=== PATIENT | female | born 2000 | race Caucasian/White ===

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

== ENCOUNTER 2020-09-01 19:14 | Emergency (ER) | payer OTHER ==
--- OUTSIDE RECORDS SUMMARY | 2020-09-01 19:18 | XMS REPORT | Continuity of Care Document ---
:2000 Author Organization [facility] t Address [address] [place] [address] Care Team Providers Name Role Phone Vanessa Burns Attending Clinician BRIAN Attending Clinician Unavailable PACINI Attending Clinician Unavailable STANCELL Attending Clinician Unavailable ATHLETIC Attending Clinician Unavailable GERALDO Attending Clinician Unavailable Problems Condition Condition Condition Status Onset Resolution Last Treating Co mments Source Name Details Category Date Date Treatment Clinician Date Right knee Right knee Problem Active [facility] [place] [facility] ACL injury ACL injury Problem Active [facility] [place] [facility] Allergies, Adverse Reactions, Alerts This patient has no known allergies or adverse reactions. Medications This patient has no known medications. Procedures Procedure Date / Time Performed Performing Clinician [facility] e [U] XRAY KNEE 3 VWS 2017-03-29 00:00:00 [facility] RIGHT [id number] Physicians Encounters Start End Encounter Admission Attending Care Care Encounter Source Date/Time Date/Time Type Type Clinicians Facility Department ID 2020-08-24 2020-08-24 Emergency CARLOS A [facility] [id number] 11:17:00 12:18:00 Chris Nuñez [id number] [place] [id number] [place] [id number] 2017-05-04 2017-05-04 [facility] [id number] [facility] 08:30:00 08:30:00 t; IFRAH TORRES, at [facility] Dejan Alfaro M.D. Physici ans 2017-03-29 2017-03-29 Appointmen JOSEF [facility] Orthopedics [id number] [facility] 09:30:00 09:30:00 t; JUWAN BAHENA, at [facility] it y of JUWAN, P.A. [place] [facility] Physici ans 2017-02-02 2017-02-02 Appointmen FRED, [facility] UTP [id number] Univers 11:30:00 11:30:00 t; DHRUV ELDRIDGE [place] Radha ELDRIDGE AUDIO VIDEO TECHNICIAN ans 2017-01-18 [facility] [id number] Univers 09:45:00 09:45:00 t; JUWAN BAHENA, it y of JUWAN, P.A. [place] P[facility]. 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 [place] M.D. Physici ans 2016-12-29 2016-12-29 [facility] BRIAN, [facility] UTP [id number] Univers 16:30:00 16:30:00 t; IFRAH TORRES ity o f WALTER, M.D. [place] M.D. Physici ans 2016-12-10 2016-12-10 [facility] GERALDO, [facility] [id number] Univers 09:30:00 09:30:00 t; MANISHA CHOW P.A. ity of [place], [place] P.A. Physici ans Results This patient has no known results.
[2020-09-01] MEDS ORDERED: FAMOTIDINE 20 MG/2 ML VIAL IV ONE (20:48)
[2020-09-01] MEDS ORDERED: NA CHLORIDE 0.9% 1,000 ML ONE (20:48)
[2020-09-01] MEDS ORDERED: ONDANSETRON 4 MG/2 ML VIAL ONE (20:48)
[2020-09-01 20:57] LABS: Basophils % 0.1 % (0-1.3); Hematocrit 36.2 % (36.0-45.0); Lymphocytes % 7.8 % (15.3-44.8); MPV 9.4 fL (7.6-11.3); RBC Red Blood Cell Count 4.21 M/uL (3.86-4.86)
[2020-09-01 21:25] LABS: ALT/SGPT 32 U/L (12-78); AST/SGOT 15 U/L (15-37); Albumin 3.6 g/dL (3.4-5.0); Alkaline Phosphatase 76 U/L (45-117); BUN Blood Urea Nitrogen 8 mg/dL (7-18); Bicarbonate 24 mmol/L (21-32); Bilirubin Direct 0.1 mg/dL (0-0.2); Bilirubin Total 0.5 mg/dL (0.2-1.0); Glucose Level 88 mg/dL (74-106); Lipase 92 U/L (73-393); Potassium 3.4 mmol/L (3.5-5.1); Protein, Total 7.6 g/dL (6.4-8.2); Sodium Level 140 mmol/L (136-145)
[2020-09-01 21:32] LABS: HCG, Quantitative 119438 mIU/mL (1-3)
[2020-09-01 21:56] LABS: Blood Morphology Comment NOT SEEN (NOT SEEN); Platelet Estimate ADEQ; White Blood Cell Scan OK (OK)
[2020-09-01 22:42] LABS: Urine Blood Negative (Negative); Urine Glucose Negative (Negative); Urine Protein 1+ (Negative); Urine Specific Gravity >=1.030 (1.005-1.030)
--- NOTE | 2020-09-01 22:56 | ER ---
Nurse's Notes [facility] Name: Clarissa Rodriguez Age: 20 yrs Sex: Female : 2000 Arrival Date: 09/01/2020 Time: 19:26 Bed 17 Private MD: Diagnosis: Hyperemesis Gravidarum Presentation: 09/01 19:33 Chief complaint: Patient states: 8 weeks , been vomiting all day, can't keep ca1 anything down. Took Promethazine, just threw it up as well. Coronavirus screen: Client denies travel out of the [place] in the last 14 days. nausea, vomiting. Client presents with at least one sign or symptom that may indicate coronavirus-19. Standard/surgical mask placed on the client. Provider contacted for isolation considerations. Ebola Screen: Patient negative for fever greater than or equal to 101.5 degrees Fahrenheit, and additional compatible Ebola Virus Disease symptoms Patient denies exposure to infectious person. Patient denies travel to an Ebola-affected area in the 21 days before illness onset. No symptoms or risks identified at this time. Initial Sepsis Screen: Does the patient meet any 2 criteria? No. Patient's initial sepsis screen is negative. Does the patient have a suspected source of infection? No. Patient's initial sepsis screen is negative. Risk Assessment: Do you want to hurt yourself or someone else? Patient reports no desire to harm self or others. Onset of symptoms was September 01, 2020. 19:33 Method Of Arrival: Ambulatory ca1 19:33 Acuity: RICKY 3 ca1 Triage Assessment: 22:04 General: Appears in no apparent distress. Behavior is calm, cooperative. GI: Reports. 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 - Social history:: Smoking status: Patient denies any tobacco usage or history of. Screenin:04 Abuse screen: Denies threats or abuse. Denies injuries from another. Nutritional ak2 screening: No deficits noted. Tuberculosis screening: No symptoms or risk factors identified. Fall Risk None identified. Assessment: 22:04 Reassessment: Patient and/or family updated on plan of care and expected duration. Pain ak2 level reassessed. Pain: Denies pain. GI: Abdomen is non-distended. Vital Signs: 19:33 BP 136 / 75; Pulse 90; Resp 18 S; Temp 97.6(TE); Pulse Ox 100% on R/A; Weight 98.43 kg ca1 (R); Height 5 ft. 2 in. (157.48 cm) (R); Pain 5/10; 22:05 BP 124 / 68; Pulse 75; Resp 18; Pulse Ox 98% on R/A; ak2 23:13 BP 116 / 79; Pulse 68; Resp 18; Pulse Ox 98% on R/A; ak2 19:33 Body Mass Index 39.69 (98.43 kg, 157.48 cm) ca1 ED Course: 19:26 Patient arrived in ED. am4 19:34 Triage completed. ca1 19:34 Arm band placed on right wrist. ca1 19:37 Chip Sanchez MD is Attending Physician. [facility] 19:44 Johnie Escoto is Primary Nurse. ak2 22:04 Patient has correct armband on for positive identification. ak2 22:04 No provider procedures requiring assistance completed. Inserted saline lock: 20 gauge ak2 in right antecubital area, using aseptic technique. 23:14 IV discontinued. ak2 Administered Medications: 20:29 Drug: NS 0.9% 1000 ml Route: IV; Rate: 1000 ml; Site: right antecubital; ak2 20:29 Drug: Zofran (Ondansetron) 4 mg Route: IVP; Site: right antecubital; ak2 20:29 Drug: Pepcid (famotidine) 20 mg Route: IVP; Site: right antecubital; ak2 Outcome: 22:56 Discharge ordered by . claudio 23:13 Discharged to home ambulatory. ak2 23:13 Condition: good 23:13 Discharge instructions given to patient, Prescriptions given X 23:20 Patient left the ED. ak2 Signatures: Latonya Finn RN RN ca1 Chip Sanchez MD MD mh7 Martinez, Ashley 4 Johnie Escoto ak2
--- NOTE | 2020-09-01 22:57 | EDPHYS ---
Physician Documentation [facility] Name: Clarissa Rodriguez Age: 20 yrs Sex: Female : 2000 Arrival Date: 09/01/2020 Time: 19:26 Bed 17 Private MD: ED Physician Chip Sanchez HPI: 09/01 20:17 This 20 yrs old Female presents to ER via Ambulatory with complaints of mh7 Nausea/Vomiting. 20:17 The patient presents to the emergency department with nausea, that is moderate, mh7 vomiting, that is intermittent, described as clear fluid. Onset: The symptoms/episode began/occurred 2 week(s) ago, and became worse this morning. Possible causes: . The symptoms are aggravated by food , The symptoms are alleviated by nothing. Associated signs and symptoms: Pertinent positives: nausea, vomiting, Pertinent negatives: abdominal pain, anorexia, belching, constipation, diarrhea, dysuria, fever, flatulence, GI bleeding, hematuria, vaginal discharge. Severity of symptoms: At their worst the symptoms were moderate today, in the emergency department the symptoms are unchanged. DEVELOPMENT ENG: 19:34 2, Full Term 1, Living 1, LMP 07/06/2020 ca1 Historical: - Allergies: 19:34 No Known Allergies; ca1 - Home Meds: 19:34 Nausea medication [Active]; ca1 22:05 Vitamin Oral [Active]; ak2 - PMHx: 19:34 None; ca1 - Immunization history:: Client reports having NOT received the Covid vaccine. - Social history:: Smoking status: Patient denies any tobacco usage or history of. ROS: 20:17 Constitutional: Negative for fever, chills, and weight loss, Eyes: Negative for injury, mh7 pain, redness, and discharge, ENT: Negative for injury, pain, and discharge, Neck: Negative for injury, pain, and swelling, Cardiovascular: Negative for chest pain, palpitations, and edema, Respiratory: Negative for shortness of breath, cough, wheezing, and pleuritic chest pain, Back: Negative for injury and pain, : Negative for injury, bleeding, discharge, and swelling, MS/Extremity: Negative for injury and deformity, Skin: Negative for injury, rash, and discoloration, Neuro: Negative for headache, weakness, numbness, tingling, and seizure, Psych: Negative for depression, anxiety, suicide ideation, homicidal ideation, and hallucinations, Allergy/Immunology: Negative for hives, rash, and allergies, Endocrine: Negative for neck swelling, polydipsia, polyuria, polyphagia, and marked weight changes, Hematologic/Lymphatic: Negative for swollen nodes, abnormal bleeding, and unusual bruising. Exam: 20:17 Constitutional: This is a well developed, well nourished patient who is awake, alert, mh7 and in no acute distress. Head/Face: Normocephalic, atraumatic. Eyes: Pupils equal round and reactive to light, extra-ocular motions intact. Lids and lashes normal. Conjunctiva and sclera are non-icteric and not injected. Cornea within normal limits. Periorbital areas with no swelling, redness, or edema. Neck: Trachea midline, no thyromegaly or masses palpated, and no cervical lymphadenopathy. Supple, full range of motion without nuchal rigidity, or vertebral point tenderness. No Meningismus. Chest/axilla: Normal chest wall appearance and motion. Nontender with no deformity. No lesions are appreciated. Cardiovascular: Regular rate and rhythm with a normal S1 and S2. No gallops, murmurs, or rubs. Normal PMI, no JVD. No pulse deficits. Respiratory: Lungs have equal breath sounds bilaterally, clear to auscultation and percussion. No rales, rhonchi or wheezes noted. No increased work of breathing, no retractions or nasal flaring. Abdomen/GI: Soft, non-tender, with normal bowel sounds. No distension or tympany. No guarding or rebound. No evidence of tenderness throughout. Back: No spinal tenderness. No costovertebral tenderness. Full range of motion. Skin: Warm, dry with normal turgor. Normal color with no rashes, no lesions, and no evidence of cellulitis. MS/ Extremity: Pulses equal, no cyanosis. Neurovascular intact. Full, normal range of motion. Neuro: Awake and alert, GCS 15, oriented to person, place, time, and situation. Cranial nerves II-XII grossly intact. Motor strength 5/5 in all extremities. Sensory grossly intact. Cerebellar exam normal. Normal gait. Psych: Awake, alert, with orientation to person, place and time. Behavior, mood, and affect are within normal limits. Vital Signs: 19:33 BP 136 / 75; Pulse 90; Resp 18 S; Temp 97.6(TE); Pulse Ox 100% on R/A; Weight 98.43 kg ca1 (R); Height 5 ft. 2 in. (157.48 cm) (R); Pain 5/10; 22:05 BP 124 / 68; Pulse 75; Resp 18; Pulse Ox 98% on R/A; ak2 23:13 BP 116 / 79; Pulse 68; Resp 18; Pulse Ox 98% on R/A; ak2 19:33 Body Mass Index 39.69 (98.43 kg, 157.48 cm) ca1 MDM: 22:54 Differential diagnosis: gastritis, pancreatitis, Hyperemesis Gravidarum. Data reviewed: [facility] vital signs, nurses notes, lab test result(s), Beta HCG: CBC, electrolytes, urinalysis. Data interpreted: Pulse oximetry: on room air is 98 %. Interpretation: normal. Counseling: I had a detailed discussion with the patient and/or guardian regarding: the historical points, exam findings, and any diagnostic results supporting the discharge/admit diagnosis, lab results, the need for outpatient follow up, an OB/Gyne specialist, to return to the emergency department if symptoms worsen or persist or if there are any questions or concerns that arise at home. Response to treatment: the patient's symptoms have resolved after treatment, the patient's blood pressure is in an acceptable range, mental status has returned to baseline, the patient no longer shows bradycardia, the patient is not short of breath, the patient is not tachycardic, the patient's pain is gone, the patient's temperature has normalized. 22:[address] [facility] 22:57 ED course: Patient reports having a normal ultrasound last week.. [facility] 09/01 20:06 Order name: CBC with Diff; Complete Time: 21:58 [facility] 09/01 20:06 Order name: Basic Metabolic Panel; Complete Time: 21:34 [facility] 09/01 20:06 Order name: LFT's; Complete Time: 21:34 [facility] 09/01 20:06 Order name: Lipase; Complete Time: 21:34 [facility] 09/01 20:06 Order name: HCG-Quantitative; Complete Time: 21:34 [facility] 09/01 21:56 Order name: CBC Smear Scan; Complete Time: 21:58 [facility] 09/01 20:06 Order name: Urine Dipstick-Ancillary (obtain specimen) [facility] 09/01 22:41 Order name: Urine Dipstick-Ancillary; Complete Time: 22:52 EDMS Administered Medications: 20:29 Drug: NS 0.9% 1000 ml Route: IV; Rate: 1000 ml; Site: right antecubital; ak2 20:29 Drug: Zofran (Ondansetron) 4 mg Route: IVP; Site: right antecubital; ak2 20:29 Drug: Pepcid (famotidine) 20 mg Route: IVP; Site: right antecubital; ak2 Disposition Summary: 09/01/20 22:56 Discharge Ordered Location: Home [facility] Problem: an ongoing problem [facility] Symptoms: have improved [facility] Condition: Stable [facility] Diagnosis - Hyperemesis Gravidarum [facility] Followup: [facility] - With: Private Physician - When: 1 - 2 days - Reason: Worsening of condition, Recheck today's complaints, Continuance of care, Re-evaluation by your physician Discharge Instructions: - Discharge Summary Sheet [facility] - Hyperemesis Gravidarum [facility] Forms: - Medication Reconciliation Form [facility] - Thank You Letter [facility] - Antibiotic Education [facility] - Prescription Opioid Use [facility] Prescriptions: - ondansetron 4 mg Oral tablet,disintegrating - place 1 tablet by TRANSLINGUAL route every 8 hours As needed; 10 tablet; [facility] Refills: 0, Product Selection Permitted Signatures: Dispatcher [employer] [facility] Latonya Finn RN RN ca1 Chip Sanchez MD MD [facility] Johnie Escoto [facility]
[2020-09-01 23:32] VITALS: TEMP 97.6
[2020-09-01 23:34] VITALS: O2SAT 98
[2020-09-01 23:35] VITALS: BP 116/79
== END 2020-09-01 23:20 | disposition home or self-care (01) ==
LOC: ER 19:14
DX: O21.0 Mild hyperemesis gravidarum (principal); Z3A.00 Weeks of gestation of pregnancy not specified
CPT/HCPCS: 85025; 80048; 36415; 80076; 84702; 81003; 83690; 96375; 96374; 99283; J7030; J2405

== ENCOUNTER 2022-07-17 17:48 | Emergency (ER) | payer BC, OTHER ==
--- OUTSIDE RECORDS SUMMARY | 2022-07-17 17:54 | XMS REPORT | Continuity of Care Document ---
:2000 Author Organization [facility] t Address [address] [facility] [place] [address] [place] [address] Care Team Providers Name Role Phone Artemio Lawler Primary Care Physician Jackson Sandy MD Attending Clinician JACKSON SANDY Attending Clinician Unavailable Nurse, [facility] Attending Clinician Unavailable Doctor Unassigned, [place] Attending Clinician Unavailable Only, Adc Test Attending Clinician Unavailable Lawrence Soto MD Attending Clinician Pob, [facility] Lab Main Attending Clinician Unavailable Ultrasound, Ang-Mfm Attending Clinician Unavailable Eliazar Cuba MD Attending Clinician ELIAZAR CUBA Attending Clinician Unavailable ELIAZAR CUBA Attending Clinician Unavailable DEVON BOO Attending Clinician Unavailable Devon Boo MD Attending Clinician Balta Diaz Attending Clinician Unavailable Chris Burns Attending Clinician CHRIS GARCIA Attending Clinician Unavailable LOWE, IFRAH, M.D. Attending Clinician Unavailable JUWAN BAHENA P.A. Attending Clinician Unavailable JAZMYN IBARRA NP Attending Clinician Unavailable ATHLETIC, CHANNEL OPENER Attending Clinician Unavailable MANISHA CHOW P.A. Attending Clinician Unavailable JACKSON SANDY Admitting Clinician Unavailable Jackson Sandy MD Admitting Clinician Physician, No Primary or Family Admitting Clinician Unavaila ble Payers Payer Name Policy Type Policy Number Effective Date Expiration Date S ro [employer] OF [place] [id number] 2018 00:00:00 [facility] [id number] 2020 CHOICE MEDICAID 00:00:00 MEDICAID [facility] [id number] 2020 00:00:00 [facility] [id number] 2014 PPO/POS 00:00:00 Problems Condition Condition Condition Status Onset Resolution Last Treating Co mments Source Name Details Category Date Date Treatment Clinician Date Liveborn Liveborn Disease Active Unive rs , of infant, of 2-15 it y of [place] , [place] d[place] born in born in [facility] by by delivery delivery Labor and Labor and Disease Active Uni vers delivery, delivery, 2-14 [place] for [place] for care 00 Medica l [place] Obesity Obesity Disease Active Univers (BMI (BMI 1-07 ity of 30-39.9) 30-39.9) 00:00: [address] Obesity in Obesity in Disease Active U nivers 9-08 ity of 00:00: [address] History of History of Disease Active U nivers COVID-19 COVID-19 8-10 ity of 00:00: [place] 00 [facility] Branch Supervisio Supervisio Disease Active U nivers n of high n of high 7-13 ity of risk risk 00:00: [place] 00 Medi keyanna in third in third Branch trimester trimester Nausea/vom Nausea/vom Disease Active U nivers iting in iting in 7-01 [place] 00 [place] Gastroesop Gastroesop Disease Active U nivers hageal hageal 7- ity of reflux reflux 00:00: [place] disease disease 00 Medical without without Branch esophagiti esophagiti s s Generalize Generalize Disease Active U hugo d anxiety d anxiety 08-22 ity of disorder disorder 00:00: [place] 00 Medical Branch Depression Depression Disease Active U nivers affecting affecting 08-22 it[place] of 00:[place] in third in third 00 Medica l trimester, trimester, Br anch antepartum antepartum Mild Mild Disease Active Univers intermitte intermitte 08-22 it y of nt asthma nt asthma 00:00: [place] without without 00 Medical complicati complicati Br anch on on H/O H/O Disease Active Univers 08-22 ity of section section 00:00: [place] 00 [facility] Branch Right knee Right knee Problem Active U T pain pain Physici ans ACL injury ACL injury Problem Active U T tear tear Physici ans No known No known Disease Unive rs active active ity of problems problems [facility] Allergies, Adverse Reactions, Alerts Allergy Allergy Status Severity Reaction(s) Onset Inactive Treating Comm ents Source Name Type Date Date Clinician No Known DA Active U [facility] Allergie 10-31 [facility] [place] No Known DA Active U [facility] Allergie 10-31 [facility] [place] NO KNOWN Drug Active Univers ALLERGIE Class ity of S [facility] Social History Social Habit Start Date Stop Date Quantity Comments Source ASSERTION 2020-07-21 University of 00:00:00 [facility] Exposure to Not sure University SARS-CoV-2 [facility] [place] [facility] (event) [place] Alcohol intake 2021-05-22 2021-05-22 Lifetime University of 00:00:00 00:00:00 non-drinker [facility] [place] [facility] (finding) [place] Tobacco use and 2020-08-20 2020-08-20 Smokeless tobacco Un iversity of exposure 00:00:00 00:00:00 non-user [facility] Sex Assigned At [birth year] Universit y of 00:00:00 00:00:00 [facility] Smoking Status Start Date Stop Date Source Unknown if ever smoked Universit y of [facility] Never smoked tobacco [facility] Medications Ordered Filled Start Stop Current Ordering Indication Dosage Frequency Signature Comments Components Source Medication Medication Date Date Medication? Clinician (SIG) Name Name SERTraline Yes [id number] 25mg Take 1 U nivers 25 mg 3-31 tablet by ity of tablet 00:00: mouth [place] 00 daily. Medical Branch SERTraline Yes [id number] 25mg Take 1 U nivers 25 mg 3-31 tablet by ity of tablet 00:00: mouth [place] 00 daily. Medical Branch ibuprofen 800mg 800 mg, Uni vers (IBU) 16 04-09 Oral, ity of tablet 800 03:00: 01:58 ONCE, 1 Manpreet as mg 00 :00 dose, On Medical e Branch 04/08/21 at 2100, Routine Yes Take by Bufferer s vit 2-15 mouth. ity of calc,iron,f 20:35: [address] ( Branch VITAMIN ORAL) Yes Take by Bufferer s vit 2-15 mouth. ity of calc,iron,f 20:35: [address] ( Branch VITAMIN ORAL) Yes Take by Bufferer s vit 2-15 mouth. ity of calc,iron,f 20:35: [address] ( Branch VITAMIN ORAL) Yes Take by Bufferer s vit 2-15 mouth. ity of calc,iron,f 20:35: [address] ( Branch VITAMIN ORAL) Yes Take by Bufferer s vit 2-15 mouth. ity of calc,iron,f 20:35: [address] ( Branch VITAMIN ORAL) Yes Take by Bufferer s vit 2-15 mouth. ity of calc,iron,f 20:35: [address] ( Branch VITAMIN ORAL) Yes Take by Bufferer s vit 2-15 mouth. ity of calc,iron,f 20:35: [address] ( Branch VITAMIN ORAL) Yes Take by Univer s vit 2-15 mouth. ity of calc,iron,f 09:31: [address] ( Branch VITAMIN ORAL) docusate 2022-0 Yes [id number] 240mg Take 1 U nivers calcium 240 2-15 capsule by it y of mg capsule 00:00: mouth [place] 00 daily as Medical needed for Branch Constipati on. ferrous 0 Yes [id number] 325mg Take 1 Un cinda sulfate 325 2-15 tablet by ity of mg (65 mg 00:00: mouth [place] iron) 00 daily. Medical tablet Branch ibuprofen Yes [id number] 600mg Take 1 Univers 600 mg 2-15 tablet by ity of tablet 00:00: mouth [place] 00 every 6 Medical (six) Branch hours as needed (Pain). Take with food or milk. acetaminoph Yes 650mg 650 mg, Un cinda en 2-15 Oral, Q6H, ity of (TYLENOL) 00:00: First dose [place] tablet 650 00 on Mon Medical mg 04/07/21 at Branch 1800, Until Discontinu ed, Routine docusate Yes [id number] 240mg Take 1 U nivers calcium 240 2-15 capsule by it y of mg capsule 00:00: mouth once [place] 00 daily as Medical needed for Branch Constipati on. ferrous Yes [id number] 325mg Take 1 Un cinda sulfate 325 2-15 tablet by ity of mg (65 mg 00:00: mouth [place] iron) 00 daily. Medical tablet Branch ibuprofen Yes [id number] 600mg Take 1 Univers 600 mg 2-15 tablet by ity of tablet 00:00: mouth [place] 00 every 6 Medical (six) Branch hours as needed (Pain). Take with food or milk. acetaminoph Yes 650mg 650 mg, Un cinda en 2-15 Oral, Q6H, ity of (TYLENOL) 00:00: First dose [place] tablet 650 00 on Mon Medical mg 04/07/21 at Branch 1800, Until Discontinu ed, Routine docusate 0 Yes [id number] 240mg Take 1 U nivers calcium 240 2-15 capsule by it y of mg capsule 00:00: mouth once [place] 00 daily as Medical needed for Branch Constipati on. ferrous 0 Yes [id number] 325mg Take 1 Un cinda sulfate 325 2-15 tablet by ity of mg (65 mg 00:00: mouth [place] iron) 00 daily. Medical tablet Branch ibuprofen Yes [id number] 600mg Take 1 Univers 600 mg 2-15 tablet by ity of tablet 00:00: mouth [place] 00 every 6 Medical (six) Branch hours as needed (Pain). Take with food or milk. docusate 0 Yes [id number] 240mg Take 1 U nivers calcium 240 2-15 capsule by it y of mg capsule 00:00: mouth once [place] 00 daily as Medical needed for Branch Constipati on. ferrous Yes [id number] 325mg Take 1 Un cinda sulfate 325 2-15 tablet by ity of mg (65 mg 00:00: mouth [place] iron) 00 daily. Medical tablet Branch ibuprofen Yes [id number] 600mg Take 1 Univers 600 mg 2-15 tablet by ity of tablet 00:00: mouth [place] 00 every 6 Medical (six) Branch hours as needed (Pain). Take with food or milk. docusate Yes [id number] 240mg Take 1 U nivers calcium 240 2-15 capsule by it y of mg capsule 00:00: mouth once [place] 00 daily as Medical needed for Branch Constipati on. ferrous Yes [id number] 325mg Take 1 Un cinda sulfate 325 2-15 tablet by ity of mg (65 mg 00:00: mouth [place] iron) 00 daily. Medical tablet Branch ibuprofen 0 Yes [id number] 600mg Take 1 Univers 600 mg 2-15 tablet by ity of tablet 00:00: mouth [place] 00 every 6 Medical (six) Branch hours as needed (Pain). Take with food or milk. docusate 0 Yes [id number] 240mg Take 1 U nivers calcium 240 2-15 capsule by it y of mg capsule 00:00: mouth once [place] 00 daily as Medical needed for Branch Constipati on. ferrous 0 Yes [id number] 325mg Take 1 Un cinda sulfate 325 2-15 tablet by ity of mg (65 mg 00:00: mouth [place] iron) 00 daily. Medical tablet Branch ibuprofen Yes [id number] 600mg Take 1 Univers 600 mg 2-15 tablet by ity of tablet 00:00: mouth [place] 00 every 6 Medical (six) Branch hours as needed (Pain). Take with food or milk. docusate Yes [id number] 240mg Take 1 U nivers calcium 240 2-15 capsule by it y of mg capsule 00:00: mouth once [place] 00 daily as Medical needed for Branch Constipati on. ferrous Yes [id number] 325mg Take 1 Un cinda sulfate 325 2-15 tablet by ity of mg (65 mg 00:00: mouth [place] iron) 00 daily. Medical tablet Branch ibuprofen Yes [id number] 600mg Take 1 Univers 600 mg 2-15 tablet by ity of tablet 00:00: mouth [place] 00 every 6 Medical (six) Branch hours as needed (Pain). Take with food or milk. docusate Yes [id number] 240mg Take 1 U nivers calcium 240 2-15 capsule by it y of mg capsule 00:00: mouth once [place] 00 daily as Medical needed for Branch Constipati on. ferrous Yes [id number] 325mg Take 1 Un cinda sulfate 325 2-15 tablet by ity of mg (65 mg 00:00: mouth [place] iron) 00 daily. Medical tablet Branch ibuprofen Yes [id number] 600mg Take 1 Univers 600 mg 2-15 tablet by ity of tablet 00:00: mouth [place] 00 every 6 Medical (six) Branch hours as needed (Pain). Take with food or milk. oxyCODONE-a 2021- No [id number] 1{tbl} Take 1 U nivers cetaminophe 2-15 -23 tablet by it y of n 5-325 mg 00:00: 05:59 mouth [place] per tablet 00 :00 every 6 Medica l (six) Branch hours as needed for Pain (scale 7-10) for up to 7 days. Indication s: acute pain oxyCODONE-a 2021- No 4647 1{tbl} Take 1 U nivers cetaminophe 2-15 02-23 tablet by it y of n 5-325 mg 00:00: 05:59 mouth [place] per tablet 00 :00 every 6 Medica l (six) Branch hours as needed for Pain (scale 7-10) for up to 7 days. Indication s: acute pain oxyCODONE-a 2021- No 4647 1{tbl} Take 1 U nivers cetaminophe 04-08 tablet by it y of n 5-325 mg 00:00: 05:59 mouth [place] per tablet 00 :00 every 6 Medica l (six) Branch hours as needed for Pain (scale 7-10) for up to 7 days. Indication s: acute pain ketorolac No 30mg 30 mg, Unive rs (TORADOL) 04-07- Slow IV ity of injection 20:00: 15:09 [place], Q6H [place] 30 mg 00 :00 ABX, 4 Medical doses, Branch First dose on Wed04/07/21 at 1400, Last dose on Wed04/08/21 at 0800, Routine simethicone Yes 125mg 125 mg, Un cinda (MYLICON) 2-14 Oral, ity of chewable 19:00: PC+HS, [place] tablet 125 00 First dose Med ical mg on Wed04/07/21 at 1300, Until Discontinu ed, Routine simethicone Yes 125mg 125 mg, Un cinda (MYLICON) 2-14 Oral, ity of chewable 19:00: PC+HS, [place] tablet 125 00 First dose Med ical mg on Wed04/07/21 at 1300, Until Discontinu ed, Routine lactated 2021- No 1000mL at 125 Univ ers ringers IV 04-07 02-15 mL/hr, ity of infusion 18:15: 01:49 1,000 mL, Manpreet as 1,000 mL 00 :00 IV Medical Infusion, Branch ONCE, 1 dose, On Wed04/07/21 at 1215, Routine rho(D) Yes 300ug 300 mcg, Univer s immune - Intramuscu ity of globulin 17:15: lar, ONCE, Manpreet as (RHOGAM) 17 For 1 Medical syringe 300 dose, Branch mcg Conditiona l, Routine rho(D) Yes 300ug 300 mcg, Univer s immune -14 Intramuscu ity of globulin 17:15: lar, ONCE, Manpreet as (RHOGAM) 17 For 1 Medical syringe 300 dose, Branch mcg Conditiona l, Routine oxyCODONE 2021-0 Yes 10mg 10 mg, Univer s immediate 2-14 Oral, ity of release 17:14: Q6HPRN, [place] tablet 10 50 Starting Medica l mg on Wed Branch 04/07/21 at 1114, Until Discontinu ed, Routine, Pain (scale 7-10)<b r>pricing/signage team member approving Restricted medication : JACKSON SANDY oxyCODONE 2021-0 Yes 10mg 10 mg, Univer s immediate 2-14 Oral, ity of release 17:14: Q6HPRN, [place] tablet 10 50 Starting Medica l mg on Wed Branch 04/07/21 at 1114, Until Discontinu ed, Routine, Pain (scale 7-10)<b r>pricing/signage team member approving Restricted medication : JACKSON SANDY oxyCODONE 2021-0 Yes 5mg 5 mg, Univers immediate 2-14 Oral, ity of release 17:14: Q6HPRN, [place] tablet 5 mg 32 Starting Medi keyanna on Wed Branch 04/07/21 at 1114, Until Discontinu ed, Routine, Pain (scale 4-6)
pricing/signage team member approving Restricted medication : JACKSON SANDY oxyCODONE 2021-0 Yes 5mg 5 mg, Univers immediate 2-14 Oral, ity of release 17:14: Q6HPRN, [place] tablet 5 mg 32 Starting Medi keyanna on Wed Branch 04/07/21 at 1114, Until Discontinu ed, Routine, Pain (scale 4-6)
pricing/signage team member approving Restricted medication : JACKSON SANDY diphenhydrA 2021-0 Yes 25mg 25 mg, Univ ers MINE 2-14 Slow IV ity of (BENADRYL) 17:11: Push, [place] injection 32 Q6HPRN, Medical 25 mg Starting Branch on Wed04/07/21 at 1111, Until Discontinu ed, Routine, Itching diphenhydrA 2021-0 Yes 25mg 25 mg, Univ ers MINE 2-14 Oral, ity of (BENADRYL) 17:11: Q6HPRN, [place] tablet 25 32 Starting Medica l mg on Wed Branch 04/07/21 at 1111, Until Discontinu ed, Routine, Sleep, Itching ondansetron 2022-0 Yes 4mg 4 mg, Slow Univers (ZOFRAN 2-14 IV Push, ity of (PF)) 17:11: Q8HPRN, [place] injection 4 32 Starting Medi keyanna mg on Wed Branch 04/07/21 at 1111, Until Discontinu ed, Routine, Nausea and Vomiting (N/V) bisacodyL 2-0 Yes 10mg 10 mg, Univer s (DULCOLAX) 2-14 Rectal, ity of suppository 17:11: QDAILYPRN, [place] 10 mg 32 Starting Medical on Mon Branch 04/07/21 at 1111, Until Discontinu ed, Routine, Constipati on docusate 2-0 Yes 240mg 240 mg, Unive rs calcium 2-14 Oral, ity of (SURFAK) 17:11: QDAILYPRN, Manpreet as capsule 240 32 Starting Medi keyanna mg on Wed Branch 04/07/21 at 1111, Until Discontinu ed, Routine, Constipati on magnesium 2021-0 Yes 30mL 30 mL, Univer s hydroxide 2-14 Oral, ity of (MILK OF 17:11: QDAILYPRN, Manpreet as MAGNESIA) 32 Starting Medica l 400 mg/5 mL on Wed suspension 04/07/21 at 30 mL 1111, Until Discontinu ed, Routine, Constipati on diphenhydrA 2-0 Yes 25mg 25 mg, Univ ers MINE 2-14 Slow IV ity of (BENADRYL) 17:11: Push, [place] injection 32 Q6HPRN, Medical 25 mg Starting Branch on Wed04/07/21 at 1111, Until Discontinu ed, Routine, Itching diphenhydrA 2022-0 Yes 25mg 25 mg, Univ ers MINE 2-14 Oral, ity of (BENADRYL) 17:11: Q6HPRN, [place] tablet 25 32 Starting Medica l mg on Wed Branch 04/07/21 at 1111, Until Discontinu ed, Routine, Sleep, Itching ondansetron 2022-0 Yes 4mg 4 mg, Slow Univers (ZOFRAN 2-14 IV Push, ity of (PF)) 17:11: Q8HPRN, [place] injection 4 32 Starting Medi keyanna mg on Wed Branch 04/07/21 at 1111, Until Discontinu ed, Routine, Nausea and Vomiting (N/V) bisacodyL 0 Yes 10mg 10 mg, Univer s (DULCOLAX) 2-14 Rectal, ity of suppository 17:11: QDAILYPRN, [place] 10 mg 32 Starting Medical on Wed Branch 04/07/21 at 1111, Until Discontinu ed, Routine, Constipati on docusate 0 Yes 240mg 240 mg, Unive rs calcium 2-14 Oral, ity of (SURFAK) 17:11: QDAILYPRN, Manpreet as capsule 240 32 Starting Medi keyanna mg on Wed Branch 04/07/21 at 1111, Until Discontinu ed, Routine, Constipati on magnesium Yes 30mL 30 mL, Univer s hydroxide 2-14 Oral, ity of (MILK OF 17:11: QDAILYPRN, Manpreet as MAGNESIA) 32 Starting Medica l 400 mg/5 mL on Wed [place] suspension 04/07/21 at 30 mL 1111, Until Discontinu ed, Routine, Constipati on sodium 0 Yes PRN, Univers chloride 2-14 Starting ity of 0.9 % 15:30: on Wed [place] irrigation 00 04/07/21 at Med ical solution 0930, [place] Until Discontinu ed, Intra-op sodium 0 Yes PRN, Univers chloride 2-14 Starting ity of 0.9 % 15:30: on [facility] irrigation 00 04/07/21 at Med ical solution 0930, [place] Until Discontinu ed, Intra-op ceFAZolin 2021- No 2000mg 2 g (2,000 Univers in 0.9% 04-07 02-14 mg), IV ity of sodium 13:40: 14:19 [place]gyback, [place] chloride 18 :00 [facility] Medical (ANC) 2 [facility] Branch gram/100 mL ONCE, 1 RTU 2 g dose, Starting on Wed04/07/21 at 0740, Until Discontinu ed, Administer over 30 Minutes
Reason for Anti-Infec tive: Surgical Prophylaxi s
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
Duration of therapy: within 24 hours of surgery lactated 2021- No 1000mL at 125 Univ ers ringers IV 2-14 02-14 mL/hr, ity of infusion 11:45: 17:15 1,000 mL, Manpreet as 1,000 mL 00 :18 IV Medical Infusion, Branch CONTINUOUS , Starting on 04/07/21 at 0545, Until Wed04/07/21 at 1115, Routine sodium 2021- No 30mL 30 mL, Univers citrate-cit 04-0714 Oral, ity of grecia acid 11:29: 13:45 PRE-PROCED [place] (BICITRA) 47 :00 URE ONCE, Medic al [id number] 1 dose, Branch mg/5 mL Starting solution 30 on Mon mL 04/07/21 at 0529, Until Discontinu ed, Routine, Surgery/Pr ocedure clobetasoL Yes [id number] Apply to Univers 0.05 % 1-27 area(s) 2 ity of ointment 00:00: (two) [place] 00 times Medical daily. Branch clobetasoL Yes [id number] Apply to Univers 0.05 % 1-27 area(s) 2 ity of ointment 00:00: (two) [place] 00 times Medical daily. Branch clobetasoL 2021- No [id number] Apply to Univers 0.05 % 1-27 02-03 area(s) 2 ity of ointment 00:00: 00:00 (two) [place] 00 :00 times Medical daily. Branch Yes Take by [employer] [facility] vit 1-21 mouth. ity of calc,iron,f 09:45: [place] [address] Medical ( Branch VITAMIN ORAL) Yes Take by [employer] s vit 1-21 mouth. ity of calc,iron,f 09:45: [place] [address] Medical ( Branch VITAMIN ORAL) Yes Take by [employer] s vit 1-21 mouth. ity of calc,iron,f 09:45: [place] [address] Medical ( Branch VITAMIN ORAL) Yes Take by [employer] s vit 1-21 mouth. ity of calc,iron,f 09:45: [place] [address] Medical ( Branch VITAMIN ORAL) Yes Take by Bufferer s vit 1-21 mouth. ity of calc,iron,f 09:45: [place] [facility] 27 Medical ( Branch VITAMIN ORAL) Yes Take by Unive rs vit 1-21 mouth. ity of calc,iron,f 09:45: [facility] 27 Medical ( Branch VITAMIN ORAL) Yes Take by Univer s vit 1-21 mouth. ity of calc,iron,f 09:45: [facility] 27 Medical ( Branch VITAMIN ORAL) Yes Take by Univer s vit 1-21 mouth. ity of calc,iron,f 09:45: [facility] 27 Medical ( Branch VITAMIN ORAL) Yes Take by Univer s vit 1-21 mouth. ity of calc,iron,f 09:45: [facility] 27 Medical ( Branch VITAMIN ORAL) Yes Take by Univer s vit 1-21 mouth. ity of calc,iron,f 09:45: [place] [address] Medical ( Branch VITAMIN ORAL) fluconazole Yes [id number] 200mg Take 1 Univers 200 mg 1-21 tablet by ity of tablet 00:00: mouth [place] 00 daily. Medical Branch fluconazole Yes [id number] 200mg Take 1 Univers 200 mg 1-21 tablet by ity of tablet 00:00: mouth [place] 00 daily. Medical Branch fluconazole 0 Yes [id number] 200mg Take 1 Univers 200 mg 1-21 tablet by ity of tablet 00:00: mouth [place] 00 daily. Medical Branch fluconazole 0 Yes [id number] 200mg Take 1 Univers 200 mg 1-21 tablet by ity of tablet 00:00: mouth [place] 00 daily. Medical Branch fluconazole 0 2021- No [id number] 200mg Take 1 Univers 200 mg 1-21 -03 tablet by ity of tablet 00:00: 00:00 mouth [place] 00 :00 daily. Medical Branch Yes Take by Univer s vit 1-20 mouth. ity of calc,iron,f 21:46: [facility] 08 Medical ( Branch VITAMIN ORAL) 2020-02 Yes Take by Univer s vit 0-21 mouth. ity of calc,iron,f 13:53: [facility] 26 Medical ( Branch VITAMIN ORAL) 2020-02 Yes Take by Univer s vit 0-21 mouth. ity of calc,iron,f 13:53: [place] [id number] Medical ( Branch VITAMIN ORAL) 2020-02 Yes Take by Univer s vit 0-21 mouth. ity of calc,iron,f 13:53: [place] [address] Medical ( Branch VITAMIN ORAL) 2020-02 Yes Take by Univer s vit 0-21 mouth. ity of calc,iron,f 13:53: [address] ( Branch VITAMIN ORAL) 2020-02 Yes Take by Univer s vit 0-21 mouth. ity of calc,iron,f 13:53: [place] [address] Medical ( Branch VITAMIN ORAL) 2020-02 Yes Take by Univer s vit 0-21 mouth. ity of calc,iron,f 13:53: [address] ( Branch VITAMIN ORAL) 2020-02 Yes Take by Univer s vit 0-21 mouth. ity of calc,iron,f 13:53: [address] ( Branch VITAMIN ORAL) 2020-02 Yes Take by Univer s vit 0-21 mouth. ity of calc,iron,f 13:53: [address] ( Branch VITAMIN ORAL) 2020-02 Yes Take by Univer s vit 0-21 mouth. ity of calc,iron,f 13:53: [address] ( Branch VITAMIN ORAL) 2020-02 Yes Take by Univer s vit 0-21 mouth. ity of calc,iron,f 13:53: [address] ( Branch VITAMIN ORAL) ferrous 2020-02- No 325mg Take 325 Univ ers sulfate 325 0-11 10-11 mg by ity of mg (65 mg 08:17: 00:00 mouth [place] iron) 09 :00 daily. Medical tablet Branch cefdinir 2020-02- No [id number] 300mg Take 1 Un cinda 300 mg 0-11 10-22 capsule by ity of capsule 00:00: 04:59 mouth [place] 00 :00 every 12 Medical (twelve) Branch hours for 10 days. cefdinir 2020-02- No [id number] 300mg Take 1 Un cinda 300 mg 0-11 10-22 capsule by ity of capsule 00:00: 04:59 mouth [place] 00 :00 every 12 Medical (twelve) Branch hours for 10 days. cefdinir 2020-02- No [id number] 300mg Take 1 Un cinda 300 mg 0-11 10-22 capsule by ity of capsule 00:00: 04:59 mouth [place] 00 :00 every 12 Medical (twelve) Branch hours for 10 days. docusate 0 Yes [id number] 100mg Take 1 Un cinda (COLACE) 9-10 capsule by ity o f 100 mg 00:00: mouth 2 [place] capsule 00 (two) Medical times Branch daily. simethicone 0 Yes [id number] 80mg Take 1 Univers 80 mg 9-10 tablet by ity of chewable 00:00: mouth [place] tablet 00 after Medical meals and Branch at bedtime. docusate 2020-0 Yes [id number] 100mg Take 1 Un cinda (COLACE) 9-10 capsule by ity o f 100 mg 00:00: mouth 2 [place] capsule 00 (two) Medical times Branch daily. simethicone 0 Yes [id number] 80mg Take 1 Univers 80 mg 9-10 tablet by ity of chewable 00:00: mouth [place] tablet 00 after Medical meals and Branch at bedtime. docusate 0 Yes [id number] 100mg Take 1 Un cinda (COLACE) 9-10 capsule by ity o f 100 mg 00:00: mouth 2 [place] capsule 00 (two) Medical times Branch daily. simethicone 2020-0 Yes [id number] 80mg Take 1 Univers 80 mg 9-10 tablet by ity of chewable 00:00: mouth [place] tablet 00 after Medical meals and Branch at bedtime. docusate 0 Yes [id number] 100mg Take 1 Un cinda (COLACE) 9-10 capsule by ity o f 100 mg 00:00: mouth 2 [place] capsule 00 (two) Medical times Branch daily. simethicone 2020-0 Yes [id number] 80mg Take 1 Univers 80 mg 9-10 tablet by ity of chewable 00:00: mouth [place] tablet 00 after Medical meals and Branch at bedtime. docusate 2020-0 Yes [id number] 100mg Take 1 Un cinda (COLACE) 9-10 capsule by ity o f 100 mg 00:00: mouth 2 [place] capsule 00 (two) Medical times Branch daily. simethicone Yes [id number] 80mg Take 1 Univers 80 mg 9-10 tablet by ity of chewable 00:00: mouth [place] tablet 00 after Medical meals and Branch at bedtime. docusate 2020- No [id number] 100mg Take 1 U nivers (COLACE) 9-10 12- capsule by ity of 100 mg 00:00: 00:00 mouth 2 [place] capsule 00 :00 (two) Medical times Branch daily. simethicone 2020- No [id number] 80mg Take 1 Univers 80 mg 9-10 12- tablet by ity of chewable 00:00: 00:00 mouth [place] tablet 00 :00 after Medical meals and Branch at bedtime. ondansetron Yes [id number] 4mg Take 1 Univers (ZOFRAN) 4 8-05 tablet by ity of mg tablet 00:00: mouth [place] 00 every 8 Medical (eight) Branch hours as needed for Nausea and Vomiting (N/V). ondansetron Yes [id number] 4mg Take 1 Univers (ZOFRAN) 4 8-05 tablet by ity of mg tablet 00:00: mouth [place] 00 every 8 Medical (eight) Branch hours as needed for Nausea and Vomiting (N/V). ondansetron Yes [id number] 4mg Take 1 Univers (ZOFRAN) 4 8-05 tablet by ity of mg tablet 00:00: mouth [place] 00 every 8 Medical (eight) Branch hours as needed for Nausea and Vomiting (N/V). ondansetron Yes [id number] 4mg Take 1 Univers (ZOFRAN) 4 8-05 tablet by ity of mg tablet 00:00: mouth [place] 00 every 8 Medical (eight) Branch hours as needed for Nausea and Vomiting (N/V). ondansetron 0 Yes [id number] 4mg Take 1 Univers (ZOFRAN) 4 8-05 tablet by ity of mg tablet 00:00: mouth [place] 00 every 8 Medical (eight) Branch hours as needed for Nausea and Vomiting (N/V). ondansetron 0 2020- No [id number] 4mg Take 1 Univers (ZOFRAN) 4 8-05 12-02 tablet by ity of mg tablet 00:00: 00:00 mouth [place] 00 :00 every 8 Medical (eight) Branch hours as needed for Nausea and Vomiting (N/V). Yes Take by [facility] [place] [facility] vit 7-13 mouth. ity of calc,iron,f 16:14: [place] [id number] Medical ( Branch VITAMIN ORAL) Yes Take by [facility] [place] [facility] vit 7-13 mouth. ity of calc,iron,f 16:14: [place] [address] Medical ( Branch VITAMIN ORAL) Yes Take by [facility] [place] [facility] vit 7-13 mouth. ity of calc,iron,f 16:14: [place] [id number] Medical ( Branch VITAMIN ORAL) ondansetron 2020- No [id number] 4mg Take 1 Univers (ZOFRAN) 4 7- 10-11 tablet by ity of mg tablet 00:00: 00:00 mouth [place] 00 :00 every 8 Medical (eight) Branch hours as needed for Nausea and Vomiting (N/V). proMETHazin Yes [id number] 25mg Take 1 Univers e 25 mg 7-03 tablet by ity of tablet 00:00: mouth [place] 00 every 6 Medical (six) Branch hours as needed for Nausea and Vomiting (N/V). proMETHazin Yes [id number] 25mg Insert 1 Univers e 25 mg 7-03 Suppositor [place]y of suppository 00:00: [place] 00 rectum [place] every 6 Branch (six) hours as needed for Nausea and Vomiting (N/V) or N/V unresponsi ve to oral antiemetic s. proMETHazin Yes [id number] 25mg Take 1 Univers e 25 mg 7-03 tablet by ity of tablet 00:00: mouth [place] 00 every 6 Medical (six) Branch hours as needed for Nausea and Vomiting (N/V). proMETHazin Yes [id number] 25mg Insert 1 Univers e 25 mg 7-03 Suppositor [place]y of suppository 00:00: y [place] 00 rectum Medical every 6 Branch (six) hours as needed for Nausea and Vomiting (N/V) or N/V unresponsi ve to oral antiemetic s. proMETHazin Yes [id number] 25mg Take 1 Univers e 25 mg 7-03 tablet by ity of tablet 00:00: mouth [place] 00 every 6 Medical (six) Branch hours as needed for Nausea and Vomiting (N/V). proMETHazin Yes [id number] 25mg Insert 1 Univers e 25 mg 7-03 Suppositor ity of suppository 00:00: y [place] 00 rectum Medical every 6 Branch (six) hours as needed for Nausea and Vomiting (N/V) or N/V unresponsi ve to oral antiemetic s. proMETHazin 2020- No [id number] 25mg Take 1 Univers e 25 mg 7-03 12-02 tablet by ity of tablet 00:00: 00:00 mouth [place] 00 :00 every 6 Medical (six) Branch hours as needed for Nausea and Vomiting (N/V). proMETHazin 2020- No [id number] 25mg Insert 1 Univers e 25 mg 7-03 12-02 Suppositor ity o f suppository 00:00: 00:00 y into [place] as 00 :00 rectum Medical every 6 Branch (six) hours as needed for Nausea and Vomiting (N/V) or N/V unresponsi ve to oral antiemetic s. famotidine 2020- No [id number] 40mg Take 1 Univers 40 mg 6-29 10-11 tablet by ity of tablet 00:00: 00:00 mouth [place] 00 :00 daily. Medical Branch pyridoxine, 2020- No [id number] 25mg Take 1 Univers VITAMIN 6-29 10-11 tablet by ity of B-6, 25 mg 00:00: 00:00 mouth 3 [place] as tablet 00 :00 (three) Medical times Branch daily. doxylamine 2020- No [id number] 25mg Take 1 Univers 25 mg 6-29 10-11 tablet by ity of tablet 00:00: 00:00 mouth at [place] 00 :00 bedtime. Medical Branch Vital Signs Vital Name Observation Time Observation Value Comments Source Systolic blood 2021-05-22 18:35:00 110 mm[Hg] Univer sity of pressure [facility] Diastolic blood 2021-05-22 18:35:00 73 mm[Hg] Unive rsity of pressure [place] [facility] Heart rate 2021-05-22 18:35:00 71 /min Universi ty of [place] [facility] Respiratory rate 2021-05-22 18:35:00 18 /min Univ [facility] [place] [facility] Body height 2021-05-22 18:35:00 157.5 cm [facility] [place] [facility] Body weight 2021-05-22 18:35:00 89.982 kg [facility] [place] [facility] BMI 2021-05-22 18:35:00 36.28 kg/m2 [facility] [place] [facility] Systolic blood 2021-04-28 04:09:00 122 mm[Hg] Univer sity of pressure [place] [facility] Diastolic blood 2021-04-28 04:09:00 78 mm[Hg] Unive rsity of pressure [place] [facility] Heart rate 2021-04-28 04:09:00 62 /min [facility] [place] [facility] Body temperature 2021-04-28 04:09:00 36.78 Cheryl Univ [facility] [place] [facility] Respiratory rate 2021-04-28 04:09:00 18 /min Univ [facility] [place] [facility] Body height 2021-04-28 04:09:00 157.5 cm [facility] [place] [facility] Body weight 2021-04-28 04:09:00 91.808 kg [facility] [place] [facility] BMI 2021-04-28 04:09:00 37.02 kg/m2 [facility] [place] [facility] Systolic blood 2021-04-16 17:44:00 105 mm[Hg] Univer sity of pressure [place] [facility] Diastolic blood 2021-04-16 17:44:00 56 mm[Hg] Unive rsity of pressure [place] [facility] Heart rate 2021-04-16 17:44:00 60 /min [facility]i ty [facility] [place] [facility] Body temperature 2021-04-16 17:44:00 36.83 Cheryl Univ ersity [facility] [place] [facility] Respiratory rate 2021-04-16 17:44:00 20 /min Univ [facility] [place] [facility] Body weight 2021-04-16 17:44:00 93.611 kg [facility] [place] [facility] BMI 2021-04-16 17:44:00 37.75 kg/m2 [facility] [place] [facility] Systolic blood 2021-04-08 22:20:00 124 mm[Hg] Univer sity of pressure [place] [facility] Diastolic blood 2021-04-08 22:20:00 52 mm[Hg] Unive rsity of pressure [place] [facility] Heart rate 2021-04-08 22:20:00 79 /min [facility]i [facility] [place] [facility] Body temperature 2021-04-08 22:20:00 36.72 Cheryl [facility] [place] [facility] Oxygen saturation in 2021-04-08 22:20:00 98 /min University of Arterial blood by [place] [employer] keyanna Pulse oximetry Branch Respiratory rate 2021-04-08 09:00:00 18 /min Univ [facility] [place] [facility] Body height 2021-04-07 11:30:00 157.5 cm [facility] [place] [facility] Body weight 2021-04-07 11:30:00 101.606 kg [facility] [place] [facility] BMI 2021-04-07 11:30:00 40.97 kg/m2 [facility] [place] [facility] Systolic blood 2021-04-07 12:30:00 135 mm[Hg] Univer sity of pressure [place] [facility] Diastolic blood 2021-04-07 12:30:00 73 mm[Hg] Unive rsity of pressure [place] [facility] Heart rate 2021-04-07 12:30:00 84 /min [facility] [place] [facility] Oxygen saturation in 2021-04-07 12:30:00 99 /min University of Arterial blood by [place] [employer] keyanna Pulse oximetry Branch Body temperature 2021-04-07 11:30:00 36.67 Cheyrl [facility] [place] [facility] Respiratory rate 2021-04-07 11:30:00 20 /min [facility] [place] [facility] Body height 2021-04-07 11:30:00 157.5 cm [facility] [place] [facility] Body weight 2021-04-07 11:30:00 101.606 kg [facility] [place] [facility] BMI 2021-04-07 11:30:00 40.97 kg/m2 [facility] [place] [facility] Systolic blood 2021-04-03 17:18:00 114 mm[Hg] Univer sity of pressure [place] [facility] Diastolic blood 2021-04-03 17:18:00 79 mm[Hg] Unive rsity of pressure [place] [facility] Heart rate 2021-04-03 17:18:00 106 /min [facility] [place] [facility] Body temperature 2021-04-03 17:18:00 36.72 Cheryl [facility] [place] [facility] Respiratory rate 2021-04-03 17:18:00 20 /min [facility] [place] [facility] Body height 2021-04-03 17:18:00 157.5 cm [facility] [place] [facility] Body weight 2021-04-03 17:18:00 99.565 kg [facility] [place] [facility] BMI 2021-04-03 17:18:00 40.15 kg/m2 [facility] [place] [facility] Systolic blood 2021-03-27 20:42:00 120 mm[Hg] Univer sity of pressure [place] [facility] Diastolic blood 2021-03-27 20:42:00 76 mm[Hg] Unive rsity of pressure [place] [facility] Heart rate 2021-03-27 20:42:00 52 /min [facility] [place] [facility] Body temperature 2021-03-27 20:42:00 36.67 Cheryl [facility] [place] [facility] Respiratory rate 2021-03-27 20:42:00 18 /min [facility] [place] [facility] Body height 2021-03-27 20:42:00 157.5 cm [facility] [place] [facility] Body weight 2021-03-27 20:42:00 100.653 kg [facility] [place] [facility] BMI 2021-03-27 20:42:00 40.59 kg/m2 [facility] [place] [facility] Systolic blood 2021-03-20 21:41:00 111 mm[Hg] Univer sity of pressure [place] [facility] Diastolic blood 2021-03-20 21:41:00 75 mm[Hg] Unive rsity of pressure [place] [facility] Heart rate 2021-03-20 21:41:00 88 /min [facility] [place] [facility] Body temperature 2021-03-20 21:41:00 36.78 Cheryl [facility] [place] [facility] Respiratory rate 2021-03-20 21:41:00 18 /min [facility] [place] [facility] Body height 2021-03-20 21:41:00 157.5 cm [facility] [place] [facility] Body weight 2021-03-20 21:41:00 100.064 kg [facility] [place] [facility] BMI 2021-03-20 21:41:00 40.35 kg/m2 [facility] [place] [facility] Systolic blood 2021-03-14 02:00:00 125 mm[Hg] Univer sity of pressure [place] [facility] Diastolic blood 2021-03-14 02:00:00 70 mm[Hg] Unive rsity of pressure [facility] [place] [facility] Heart rate 2021-03-14 02:00:00 87 /min Universi ty [facility] [place] [facility] [place] Body temperature 2021-03-14 02:00:00 37.06 Cheryl Univ ersity of [facility] [place] [facility] Respiratory rate 2021-03-14 02:00:00 16 /min Univ ersity of [facility] Body height 2021-03-14 02:00:00 157.5 cm [facility]i ty [facility] [place] [facility] [place] Body weight 2021-03-14 02:00:00 99.701 kg [facility] [place] [facility] BMI 2021-03-14 02:00:00 40.19 kg/m2 [facility] [place] [facility] Oxygen saturation in 2021-03-14 02:00:00 100 /min University of Arterial blood by [facility] Pulse oximetry Branch Systolic blood 2021-03-13 16:34:00 129 mm[Hg] Univer sity of pressure [place] [facility] Diastolic blood 2021-03-13 16:34:00 80 mm[Hg] Unive rsity of pressure [facility] [place] [facility] Heart rate 2021-03-13 16:34:00 83 /min [facility] [place] [facility] Body temperature 2021-03-13 16:34:00 36.72 Cheryl Univ ersity of [facility] [place] [facility] Respiratory rate 2021-03-13 16:34:00 18 /min Univ ersity of [facility] [place] [facility] Body height 2021-03-13 16:34:00 157.5 cm [facility] [place] [facility] Body weight 2021-03-13 16:34:00 99.746 kg [facility] [place] [facility] BMI 2021-03-13 16:34:00 40.22 kg/m2 [facility] [place] [facility] Systolic blood 2021-02-28 16:30:00 118 mm[Hg] Univer sity of pressure [place] [facility] Diastolic blood 2021-02-28 16:30:00 77 mm[Hg] Unive rsity of pressure [place] [facility] Heart rate 2021-02-28 16:30:00 76 /min [facility] [place] [facility] Body temperature 2021-02-28 16:30:00 36.78 Cheryl [facility] [place] [facility] Respiratory rate 2021-02-28 16:30:00 18 /min Univ [facility] [place] [facility] Body height 2021-02-28 16:30:00 157.5 cm [facility] [place] [facility] Body weight 2021-02-28 16:30:00 97.523 kg [facility] [place] [facility] BMI 2021-02-28 16:30:00 39.32 kg/m2 [facility] [place] [facility] Systolic blood 2021-02-03 22:26:00 119 mm[Hg] Univer sity of pressure [place] [facility] Diastolic blood 2021-02-03 22:26:00 75 mm[Hg] Unive rsity of pressure [place] [facility] Heart rate 2021-02-03 22:26:00 69 /min [facility] [place] [facility] Body temperature 2021-02-03 22:26:00 36.67 Cheryl [facility] [place] [facility] Respiratory rate 2021-02-03 22:26:00 18 /min Univ [facility] [place] [facility] Body height 2021-02-03 22:26:00 157.5 cm [facility] [place] [facility] Body weight 2021-02-03 22:26:00 98.294 kg [facility] [place] [facility] BMI 2021-02-03 22:26:00 39.63 kg/m2 [facility] [place] [facility] Diastolic blood 2021-01-20 17:53:00 49 mm[Hg] Unive rsity of pressure [place] [facility] Heart rate 2021-01-20 17:53:00 103 /min [facility] [place] [facility] Body temperature 2021-01-20 17:53:00 36.5 Cheryl Univ [facility] [place] [facility] Respiratory rate 2021-01-20 17:53:00 18 /min Univ [facility]ity [facility] [place] [facility] Body height 2021-01-20 17:53:00 157.5 cm [facility] [place] [facility] Body weight 2021-01-20 17:53:00 98.629 kg [facility] [place] [facility] BMI 2021-01-20 17:53:00 39.77 kg/m2 [facility] [place] [facility] Systolic blood 2021-01-20 17:53:00 104 mm[Hg] Univer sity of pressure [place] [facility] Systolic blood 2020-12-30 17:25:00 111 mm[Hg] Univer sity of pressure [facility] [place] [facility] Diastolic blood 2020-12-30 17:25:00 72 mm[Hg] Unive rsity of pressure [place] [facility] Heart rate 2020-12-30 17:25:00 81 /min [facility] [place] [facility] Body temperature 2020-12-30 17:25:00 36.72 Cheryl Univ ersity of [facility] [place] [facility] Respiratory rate 2020-12-30 17:25:00 18 /min Univ ersity of [facility] Body height 2020-12-30 17:25:00 157.5 cm [facility] [place] [facility] Body weight 2020-12-30 17:25:00 97.115 kg [facility] [place] [facility] BMI 2020-12-30 17:25:00 39.16 kg/m2 [facility] [place] [facility] Systolic blood 2020-12-02 13:16:00 99 mm[Hg] Univer sity of pressure [facility] [place] [facility] Diastolic blood 2020-12-02 13:16:00 59 mm[Hg] Unive rsity of pressure [place] [facility] Heart rate 2020-12-02 13:16:00 103 /min [facility] [place] [facility] Respiratory rate 2020-12-02 13:16:00 18 /min Univ [facility] [place] [facility] Body height 2020-12-02 13:16:00 157.5 cm [facility] [place] [facility] Body weight 2020-12-02 13:16:00 96.798 kg [facility] [place] [facility] BMI 2020-12-02 13:16:00 39.03 kg/m2 [facility] [place] [facility] Oxygen saturation in 2020-12-02 13:16:00 98 /min [facility] Arterial blood by [facility] Pulse oximetry Branch Procedures Procedure Date / Time Performing Clinician Source Performed DME/SUPPLY JUSTIFICATION 2021-04-14 06:01:00 Doctor Unassigned, No General acute hospital CBC WITH DIFF 2021-04-08 09:03:00 Fish, [facility] CBC WITH DIFF 2021-04-08 09:03:00 Fish, [facility] SECTION 2021-04-07 14:37:00 Fish, [facility] SECTION 2021-04-07 14:37:00 Fish, [facility] HEPATITIS B SURFACE 2021-04-07 12:11:00 Fish, [facility] ANTIGEN [facility] ADC OR NICK ONLY - 2021-04-07 12:11:00 Fish, [facility] HIV 1/2 AG-AB WITH 2021-04-07 12:11:00 Fish, [facility] REFLEX [facility] HEPATITIS B SURFACE 2021-04-07 12:11:00 Fish, [facility] ADC OR NICK ONLY - 2021-04-07 12:11:00 Fish, [facility] HIV 1/2 AG-AB WITH 2021-04-07 12:11:00 Fish, [facility] REFLEX [facility] HB ABO GROUPING 2021-04-07 12:00:00 Fish, [facility] RHO (D) IMMUNE GLOBULIN 2021-04-07 12:00:00 Fish, [facility] HB ABO GROUPING 2021-04-07 12:00:00 Fish, [facility] RHO (D) IMMUNE GLOBULIN 2021-04-07 12:00:00 Fish, [facility] CBC WITH DIFF 2021-04-04 16:57:00 Fish, [facility] ASSIGNMENT OF BENEFITS 2021-04-04 16:24:17 Doctor Unassigned, No General acute hospital POCT URINALYSIS W/O 2021-04-03 00:00:00 Fish, [facility] SPECIFIC GRAVITY [facility] POCT URINALYSIS W/O 2021-03-27 21:01:00 Fish, [facility] SPECIFIC GRAVITY [facility] POCT URINALYSIS W/O 2021-03-20 21:52:[address] [facility] SPECIFIC [place] Medical [place] DISCLOSURE AND CONSENT, 2021-03-20 06:01:00 Doctor Unassigned, N o [facility] MEDICAL AND SURGICAL Name Medical [facility] PROCEDURES ADC ONLY - FERN TEST 2021-03-14 02:43:[address] [facility] Medical [place] COVID-19 (ID NOW RAPID 2021-03-14 02:43:00 Luanne Lewis [facility] TESTING) Medical Branch CONSENT/REFUSAL FOR 2021-03-14 01:34:45 Doctor Unassigned, No [facility] [place] [facility] Name Medical Branch CONSENT/REFUSAL FOR 2021-03-14 01:34:45 [facility] Medical Branch ASSIGNMENT OF BENEFITS 2021-03-14 01:33:44 Doctor Unassigned, No General acute hospital ASSIGNMENT OF BENEFITS 2021-03-14 01:33:44 Doctor Unassigned, No General acute hospital POCT URINALYSIS W/O 2021-03-13 16:38:00 FishJackson [facility] POCT URINALYSIS W/O 2021-02-28 00:00:00 FishJackson [facility] POCT URINALYSIS W/O 2021-02-03 23:02:00 [facility] GLUCOSE 1 HOUR POST 2021-01-31 17:00:00 Du [facility] CBC WITH DIFF 2021-01-31 17:00:00 Du [facility] o f [facility] HIV 1/2 AG-AB WITH 2021-01-31 17:00:00 Jackson [place] [facility] REFLEX [facility] Branch ASSIGNMENT OF BENEFITS 2021-01-31 15:41:50 Doctor Unassigned, No General acute hospital POCT URINALYSIS W/O 2021-01-20 00:00:[address] [facility] SPECIFIC GRAVITY [facility] POCT URINALYSIS W/O 2020-12-02 13:19:00 Fish[place] [facility] of [place] SPECIFIC [facility] [U] XRAY KNEE 3 VWS 2017-03-29 00:00:00 [facility] [id number] Encounters Start End Encounter Admission Attending Care Care Encounter Source Date/Time Date/Time Type Type Clinicians Facility Department ID 2021-05-29 Outpatient [facility] [id number] [place] 09:16:09 [id number] Health 2021-03-13 Outpatient P [facility] NICK [id number] Univers 21:46:17 ity [facility] 2021-10-22 2021-10-22 Telephone Jackson Sandy [facility] 1.2.840.11 [id number] Univers 00:00:00 00:00:00 CHASE [id number] it y of WOMEN'S 4.2.7.2.686 [facility] HEALTH [id number] [address] 2021-06-05 2021-06-05 Outpatient R JACKSON SANDY [facility] [id number] Univers 10:30:00 10:30:00 ity [facility] 2021-05-22 2021-05-22 Outpatient R JACKSON SANDY [facility] [id number] Univers 13:30:00 14:05:35 ity [facility] 2021-05-22 2021-05-22 Routine [place] Sandy [facility] 1.2.840.114 [id number] Univers 13:30:00 14:05:35 CHASE [id number] i ty of Visit WOMEN'S 4.2.7.2.686 [facility] HEALTH [id number] [address] 2021-04-23 2021-04-23 Outpatient R JACKSON SANDY [facility] [id number] Univers 10:00:00 10:27:11 ity [facility] 2021-04-23 2021-04-23 Routine Jackson Sandy [facility] 1.2.840.114 [id number] Univers 10:00:00 10:27:11 CHASE 350.1.13.10 i ty of [place] [id number] [address] 2021-04-22 2021-04-22 Outpatient R JACKSON SANDY [facility] [id number] Univers 16:00:00 16:00:00 ity of [facility] 2021-04-21 2021-04-21 Outpatient R JACKSON SANDY [facility] [id number] Univers 10:00:00 10:00:00 ity of [facility] 2021-04-16 2021-04-16 Outpatient R JACKSON SANDY [facility] [id number] Univers 11:00:00 11:18:59 ity of [facility] 2021-04-16 2021-04-16 Nurse Nurse, [facility] 1.2.840.114 [id number] Univers 11:00:00 11:18:59 Visit [place] 350.1.13.10 it[place] [id number] [facility] [address] [place] 2021-04-14 2021-04-14 Orders Doctor SUSHIL 1.2.840.114 [id number] Univers 00:00:00 00:00:00 Only Unassigned, FERCHO 350.1.13.10 ity of [place] [facility] 4.2.7.2.686 Man[place] [id number] [facility] 009 Branch 2021-04-09 2021-04-09 Telephone Jackson Sandy [facility] 1.2.840.11 [id number] Univers 00:00:00 00:00:00 CHASE 350.1.13.10 it y of WOMEN'S 4.2.7.2.686 [facility] [id number] [facility] [address] [place] 2021-04-07 2021-04-08 Inpatient P JACKSON SANDY [facility] NICK [id number] Univers 05:14:00 20:20:00 ity of [facility] 2021-04-07 2021-04-08 [facility] Jackson Sandy [facility] 1.2.840.114 [id number] Univers 05:14:00 20:20:00 Encounter ROSALINA 350.1.13.10 ity of [place] 4.2.7.2.686 [facility] [place] [id number] [facility] 083 Branch 2021-04-07 2021-04-07 Surgery Jackson Sandy [facility] 1.2.840.114 [id number] Univers 07:30:00 08:45:00 ANGLESEBASTIEN 350.1.13.10 i ty of [place] 4.2.7.2.686 [facility] [id number] [facility] 013 [place] 2021-04-04 2021-04-04 Laboratory Only, [facility] Test [facility] 1.2.840. 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 Bert, [facility] Main [facility] 1.2.8 40.114 [id number] Univers 10:00:00 10:15:00 Visit Lawrence Soto 350.1.13.10 ity of [place] 4.2.7.2.686 [facility] [place] [id number] [facility] 353 [facility] 2021-04-04 2021-04-04 Orders Doctor SUSHIL 1.2.840.114 [id number] Univers 00:00:00 00:00:00 Only Unassigned, FERCHO 350.1.13.10 ity of [place] [facility] 4.2.7.2.686 [facility] [id number] [facility] 009 [place] 2021-04-03 2021-04-03 Outpatient R JACKSON SANDY [facility] [id number] Univers 10:45:00 11:35:35 ity of [facility] 2021-04-03 2021-04-03 Routine Jackson Sandy [facility] 1.2.840.114 [id number] Univers 10:45:00 11:35:35 CHASE 350.1.13.10 i ty of Visit WOMEN'S 4.2.7.2.686 [facility] [id number] [address] 2021-03-27 2021-03-27 Outpatient R JACKSON SANDY [facility] [id number] Univers 14:15:00 14:57:58 ity [facility] 2021-03-27 2021-03-27 Routine [place] Sandy 1.2.840.114 [id number] Univers 14:15:00 14:57:58 CHASE 350.1.13.10 i ty of [place] [id number] [address] 2021-03-27 2021-03-27 Telephone Jackson Sandy [facility] 1.2.840.11 [id number] Univers 00:00:00 00:00:00 CHASE 350.1.13.10 it y [place] [id number] [address] 2021-03-20 2021-03-20 Outpatient R JACKSON SANDY [facility] [id number] Univers 14:45:00 16:09:20 ity of [facility] 2021-03-20 2021-03-20 Routine Jackson Sandy [facility] 1.2.840.114 [id number] Univers 14:45:00 16:09:20 CHASE 350.1.13.10 i ty of [place] [id number] [address] 2021-03-20 2021-03-20 Orders Doctor SUSHIL 1.2.840.114 [id number] Univers 00:00:00 00:00:00 Only Unassigned, FERCHO 350.1.13.10 ity of [place] [facility] 4.2.7.2.686 Manpreet as [id number] [address] 2021-03-17 2021-03-17 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 [facility] 1.2 .840.114 [id number] Univers 13:00:00 13:30:00 Visit 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 4.2.7.2.686 [facility] [id number] [facility] [address] 2021-03-13 2021-03-13 Outpatient P JACKSON SANDY [facility] NICK 610 [id number] Univers 19:55:00 21:43:00 ity [facility] 2021-03-13 2021-03-13 Hospital Jackson Sandy [facility] 1.2.840.114 [id number] Univers 19:55:00 21:43:00 Encounter [facility]13.10 [facility] 4.2.7.2.686 [facility] [id number] [facility] [address] 2021-03-13 2021-03-13 Outpatient R JACKSON SANDY [facility] 542 [id number] Univers 10:15:00 10:54:22 ity [facility] 2021-03-13 2021-03-13 Routine Jackson Sandy [place] 1.2.840.114 [id number] Univers 10:15:00 10:54:22 CHASE 350.1.13.10 i ty of Visit WOMEN'S 4.2.7.2.686 [facility] [id number] [address] 2021-03-05 2021-03-05 Outpatient R [facility] [id number] Univers 11:30:00 11:30:00 ity [facility] 2021-02-28 2021-02-28 Outpatient R JACKSON SANDY [facility] 280 [id number] Univers 10:15:00 11:35:37 ity [facility] 2021-02-28 2021-02-28 Routine Jackson Sandy [facility] 1.2.840.114 [id number] Univers 10:15:00 11:35:37 ROSALINA 350.1.13.10 ity of Visit [place] [phone] [facility] 2021-02-17 2021-02-17 Outpatient R JACKSON SANDY [facility] [id number] Univers 13:00:00 13:00:00 ity of [facility] 2021-02-12 2021-02-12 Telephone Jackson Sandy [facility] 1.2.840.11 [id number] Univers 00:00:00 00:00:00 CHASE 350.1.13.10 it y [place] [id number] [address] 2021-02-03 2021-02-03 Outpatient R JACKSON SANDY [facility] [id number] Univers 16:15:00 16:48:33 ity of [facility] 2021-02-03 2021-02-03 Routine Jackson Sandy [facility] 1.2.840.114 [id number] Univers 16:02:10 16:48:33 CHASE 350.1.13.10 i ty of Visit [place] [id number] [address] 2021-01-31 2021-01-31 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 Bert, Jerome Lab Main [facility] 1.2.8 40.114 [id number] Univers 09:41:08 09:56:08 Visit Jackson Sandy 350.1.13.10 ity of [facility] 4.2.7.2.[place] [id number] Nh dical NAL 353 [facility] 2021-01-31 2021-01-31 Outpatient R JACKSON SANDY [facility] 634 [id number] Univers 09:45:00 09:45:00 ity of [facility] 2021-01-31 2021-01-31 Orders Doctor LING 1.2.840.114 [id number] Univers 00:00:00 00:00:00 Only Unassigned, FERCHO 350.1.13.10 ity of [place] [facility] 4.2.7.2.686 Manpreet as [id number] [address] 2021-01-31 2021-01-31 Telephone Jackson Sandy 1.2.840.11 4 [id number] Univers 00:00:00 00:00:00 CHASE 350.1.13.10 it y of [place] [id number] [address] 2021-01-20 2021-01-20 Routine Jackson Sandy [facility] 1.2.840.114 [id number] Univers 11:17:02 11:32:02 CHASE 350.1.13.10 i ty of Visit [place] [id number] [address] 2021-01-20 2021-01-20 Outpatient R JACKSON SANDY [facility] [id number] Univers 11:15:00 [facility]:15:[facility]-03 2021-01-03 Outpatient P ELI [facility] [id number] Univers 14:00:00 12:47:50 DEVON 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 350.1.13.10 ity of [facility] 4.2.7.2.686 Manpreet as MATERNAL [id number] [facility] ical & CHILD [address] [place] [address] 2020-12-30 2020-12-30 Outpatient R JACKSON SANDY [facility] [id number] Univers 11:00:00 12:13:15 ity [facility] 2020-12-30 2020-12-30 Routine Jackson Sandy [facility] 1.2.840.114 [id number] Univers 10:58:11 12:13:15 CHASE 350.1.13.10 i ty of Visit [place] [id number] [address] 2020-12-30 2020-12-30 Outpatient R JACKSON SANDY [facility] [id number] Univers 11:00:00 11:00:00 ity [facility] 2020-12-12 2020-12-12 Outpatient P ELIAZAR CUBA [facility] [id number] Univers 09:45:00 11:06:33 ELIAZAR CUBA ity [facility] 2020-12-12 2020-12-12 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 Ultrasound, [facility] 1.2 .840.114 [id number] Univers 09:46:18 11:01:18 Visit 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840.114 [id number] Univers 08:02:24 08:30:53 [place] 350.1.13.10 i ty of Visit [place]'s [place]2.[place] [id number] [address] 2020-12-02 2020-12-02 Outpatient R JACKSON SANDY [facility] [id number] Univers 08:00:00 08:00:00 ity [facility] 2020-11-26 2020-11-26 Outpatient R JACKSON SANDY [facility] [id number] Univers 13:30:00 13:30:00 ity [facility] 2020-11-22 2020-11-22 Patient Jackson Sandy [facility] 1.2.840.114 [id number] Univers 00:00:00 00:00:00 Secure Msg [place] 350.1.13.10 ity of Pediatric 4.2.7.2.686 [facility] [id number] [facility] [address] 2020-11-21 2020-11-21 Outpatient R JACKSON SANDY [facility] [id number] Univers 11:15:00 11:15:00 ity of [facility] 2020-11-21 2020-11-21 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 Jerome Noel Lab Main [facility] 1.2.8 40.114 [id number] Univers 10:49:53 11:04:53 Visit Du Jacksonlayton Nuñez 350.1.13.10 ity of [place] [id number] Nh dical nal 353 [facility] 2020-11-21 2020-11-21 Orders Doctor SUSHIL 1.2.840.114 [id number] Univers 00:00:00 00:00:00 Only Unassigned, FERCHO 350.1.13.10 ity of [place] [facility] 4.2.7.2.686 Manpreet as [id number] [facility] [address] 2020-11-01 2020-11-01 Routine Du Jackson [facility] 1.2.840.114 [id number] Univers 09:19:08 13:54:05 Rosalina 350.1.13.10 ity of Visit [place]2.[place] [id number] Nh dical nal 134 [facility] 2020-11-01 2020-11-01 Outpatient R JACKSON SANDY [facility] [id number] Univers 09:15:00 09:15:00 ity of [facility] 2020-11-01 2020-11-01 Telephone DuAlekseyn [facility] 1.2.840.11 [id number] Univers 00:00:00 00:00:00 [place] 350.1.13.10 it y of [place] [id number] [address] 2020-11-01 2020-11-01 Telephone Jackson Sandy 1.2.840.114 [id number] Univers 00:00:00 00:00:00 Rosalina 350.1.13.10 i ty of [place] [id number] [address] 2020-10-31 2020-10-31 Emergency EL Dimitri [facility] [id number] [facility] 05:59:00 08:21:00 Lopez, Natalie [facility] 2020-10-29 2020-10-29 Routine FishJackson 1.2.840.114 [id number] Univers 13:05:32 13:48:28 [place] 350.1.13.10 i ty of Visit [place]'s [place] [id number] [address] 2020-10-29 2020-10-29 Outpatient R JACKSON SANDY [facility] [id number] Univers 13:15:00 13:15:00 ity [facility] 2020-10-21 2020-10-21 Telephone Jackson Sandy 1.2.840.11 4 [id number] Univers 00:00:00 00:00:00 [place] 350.1.13.10 it y of [place] [id number] [address] 2020-10-01 2020-10-01 Routine Jackson Sandy 1.2.840.114 [id number] Univers 15:48:21 16:32:16 Chsae 350.1.13.10 i ty of Visit [place]2.[place] [id number] [address] 2020-10-01 2020-10-01 Outpatient R JACKSON SANDY [facility] 081 [id number] Univers 16:00:00 16:00:00 ity [facility] 2020-09-26 2020-09-26 Telephone Jackson Sandy 1.2.840.11 4 [id number] Univers 00:00:00 00:00:00 [place] 350.1.13.10 it y of Women's 4.2.7.2.686 [facility] [id number] [address] 2020-09-03 2020-09-03 Outpatient JACKSON PRITCHARD [facility] [id number] Univers 16:00:00 16:00:00 ity [facility] 2020-08-27 2020-08-27 Outpatient R JACKSON SANDY [facility] [id number] Univers 14:45:00 14:45:00 ity [facility] 2020-08-24 2020-08-24 Emergency [place], [facility] 1.2.840.114 [id number] 11:17:00 12:18:00 Chris Nuñez 350.1.13.10 [place] 4.2.7.2.686 [place] [id number] 084 2020-08-24 2020-08-24 Emergency X RADHA, [facility] ERT [id number] Univers 11:08:00 11:08:00 CHRIS ity [facility] 2020-08-20 2020-08-20 Outpatient JACKSON PRITCHARD [facility] [id number] Univers 09:30:00 09:30:00 ity [facility] 2017-05-04 2017-05-04 Apolonia TORRES [facility] Orthopedics [id number] [place] 08:30:00 08:30:00 t; IFRAH TORRES, at [facility] Physi Dejan Castillo M.D. 2017-03-29 2017-03-29 Apolonia ABHENA [facility] Orthopedics [id number] [place] 09:30:00 09:30:00 t; JUWAN BAHENA, at [facility] Ph Falguni Acharya P.AAnuel 2017-02-02 2017-02-02 Apolonia IBARRA [facility] UTP [id number] [place] 11:30:00 11:30:00 t; DHRUV ELDRIDGE Ph, ans NATALIE, NP 2017-01-18 2017-01-18 HILARIO Salazar UTP [id number] [place] 09:45:00 09:45:00 t; JUWAN BAHENA, Ph anusha ECHEVERRIA, P.Skylar wooten P.A. 2017-01-12 2017-01-12 Appointmen ATHLETIC, [facility] UTP [id number] [place] 09:00:00 09:00:00 t; CHANNEL OPENER je Nielsen i CHANNEL OPENER 2017-01-07 2017-01-07 Appointeb TORRES, [facility] [id number] [place] 08:45:00 08:45:00 t; IFRAH TORRES Physi Dejan Castillo M.D. 2016-12-29 2016-12-29 Appointeb TORRES, [facility] [id number] [place] 16:30:00 16:30:00 t; IFRAH TORRES Physi Dejan Castillo M.D. 2016-12-10 2016-12-10 Appointeb CHOW [facility] [id number] [place] 09:30:00 09:30:00 t; MANISHA CHOW, P.AAnuel Physici je DYER P.A. Results Test Description Test Time Test Comments Results Result Comments Source CBC with Differential 2021-04-08 09:32:16 Test Item Value Reference Range Interpretation Comme nts WBC (test code = 6690-2) See_Comment H [A utomated message] The system which ge nerated this result transmit rachel reference range: 4.30 - 1 1.10 10*3/?L. The reference r donaldo was not used to interpr et this result as normal/abnor mal. RBC (test code = 789-8) See_Comment L [Au tomated message] The system which ge nerated this result transmit rachel reference range: 3.93 - 5 .25 10*6/?L. The reference r donaldo was not used to interpr et this result as normal/abnor mal. HGB (test code = 718-7) 8.7 g/dL 11.6-15.0 L HCT (test code = 4544-3) 27.5 % 35.7-45.2 L MCV (test code = 787-2) 87.9 fL 80.6-95.5 MCH (test code = 785-6) 27.8 pg 25.9-32.8 MCHC (test code = 786-4) 31.6 g/dL 31.6-35.1 RDW-SD (test code = 01190-9) 44.0 fL 39.0-49.9 RDW-CV (test code = 788-0) 13.7 % 12.0-15.5 PLT (test code = 777-3) See_Comment [Au tomated message] The system which ge nerated this result transmit rachel reference range: 166 - 35 8 10*3/?L. The reference range was not used to interpret th is result as normal/abnormal . MPV (test code = 75709-1) 11.3 fL 9.5-12.9 NRBC/100 WBC (test code = See_Comment [ Automated message] The 3743071677) system which ge nerated this result transmit rachel reference range: 0.0 - 10 .0 /100 WBCs. The reference r donaldo was not used to interpr et this result as normal/abnor mal. NRBC x10^3 (test code = <0.01 See_Comment [Au tomated message] The 9686664835) system which ge nerated this result transmit rachel reference range: 10*3/?L. The reference range was not u sed to interpret this result as normal/abnormal . GRAN MAT (NEUT) % (test code 76.8 % = 770-8) IMM GRAN % (test code = 0.70 % 9255460708) LYMPH % (test code = 736-9) 14.1 % MONO % (test code = 5905-5) 7.2 % EOS % (test code = 713-8) 1.0 % BASO % (test code = 706-2) 0.2 % GRAN MAT x10^3(ANC) (test 8.98 10*3/uL 1.88-7.09 H code = 1092207396) IMM GRAN x10^3 (test code = 0.08 10*3/uL 0.00-0.06 H 2728737282) LYMPH x10^3 (test code = 1.65 10*3/uL 1.32-3.29 731-0) MONO x10^3 (test code = 0.84 10*3/uL 0.33-0.92 742-7) EOS x10^3 (test code = 0.12 10*3/uL 0.03-0.39 711-2) BASO x10^3 (test code = <0.03 0.01-0.07 704-7) Lab Interpretation (test Abnormal code = 53283-3) [facility] with [id number] 09:32:16 Test Item Value Reference Range Interpretation Comments WBC (test code = See_Comment H [Automated 6690-2) message] The sy stem which generated this result transmitted reference range : 4.30 - 11.10 10*3/?L. The reference range was not used to interpret this result as normal/abnormal . RBC (test code = See_Comment L [Automated 789-8) message] The sy stem which generated this result transmitted reference range : 3.93 - 5.25 10*6/?L. The reference range was not used to interpret this result as normal/abnormal . HGB (test code = 8.7 g/dL 11.6-15.0 L 718-7) HCT (test code = 27.5 % 35.7-45.2 L 4544-3) MCV (test code = 87.9 fL 80.6-95.5 787-2) MCH (test code = 27.8 pg 25.9-32.8 785-6) MCHC (test code = 31.6 g/dL 31.6-35.1 786-4) RDW-SD (test code = 44.0 fL 39.0-49.9 29375-2) RDW-CV (test code = 13.7 % 12.0-15.5 788-0) PLT (test code = See_Comment [Automated 777-3) message] The sy stem which generated this result transmitted reference range : 166 - 358 10*3/ ?L. The reference r donaldo was not used to interpret this result as normal/abnormal . MPV (test code = 11.3 fL 9.5-12.9 23052-9) NRBC/100 WBC (test See_Comment [Automat ed code = 9805657938) message] The system which generated this result transmitted reference range : 0.0 - 10.0 /100 WBCs. The refer ence range was not u sed to interpret th is result as normal/abnormal . NRBC x10^3 (test code <0.01 See_Comment [Auto mated = 7836218860) message] The s ystem which generated this result transmitted reference range : 10*3/?L. The reference range was not used to interpret this result as normal/abnormal . GRAN MAT (NEUT) % 76.8 % (test code = 770-8) IMM GRAN % (test code 0.70 % = 8700420678) LYMPH % (test code = 14.1 % 736-9) MONO % (test code = 7.2 % 5905-5) EOS % (test code = 1.0 % 713-8) BASO % (test code = 0.2 % 706-2) GRAN MAT x10^3(ANC) 8.98 10*3/uL 1.88-7.09 H (test code = 2884678368) IMM GRAN x10^3 (test 0.08 10*3/uL 0.00-0.06 H code = 0199620287) LYMPH x10^3 (test code 1.65 10*3/uL 1.32-3.29 = 731-0) MONO x10^3 (test code 0.84 10*3/uL 0.33-0.92 = 742-7) EOS x10^3 (test code = 0.12 10*3/uL 0.03-0.39 711-2) BASO x10^3 (test code <0.03 0.01-0.07 = 704-7) Lab Interpretation Abnormal (test code = 33403-4) [facility] OR NICK ONLY - [id number] 06:03:29 Test Item Value Reference Range Interpretation Comments RPR (Qualitative) (test code = Nonreactive Nonreactive 07327-4) Lab Interpretation (test code = Normal 39377-4) [facility] OR NICK ONLY - [id number] 06:03:29 Test Item Value Reference Range Interpretation Comments RPR (Qualitative) (test code = Nonreactive Nonreactive 12078-2) Lab Interpretation (test code = Normal 73608-0) [facility] IMMUNE [id number] 18:11:51 Test Item Value Reference Range Interpretation Comments RHIG CANDIDATE? No- see comment Patient i s not a (test code = candidate for R hIg- 5055) Patient is Rh Positive.Perfor med at [facility] Laboratory Services - [facility] Blood [address] [id number] Free: [phone] A No. [id number] [facility]HO (D) IMMUNE [id number] 18:11:51 Test Item Value Reference Range Interpretation Comments RHIG CANDIDATE? No- see comment Patient i s not a (test code = candidate for R [facility]- 5055) Patient is Rh Positive.Perfor med at [facility] Laboratory Services - [facility] Blood [address] [address]Toll Free: [phone] A No. [id number] [facility] HospitalHepatitis B Surface [id number] 17:09:08 Test Item Value Reference Range Interpretation Comments HBsAg Semi-Quantitative (test code = Negative Negative 5195-3) [facility] B Surface [id number] 17:09:08 Test Item Value Reference Range Interpretation Comments HBsAg Semi-Quantitative (test code = Negative Negative 5195-3) [facility]2 AG-AB WITH [id number] 13:55:48 Test Item Value Reference Range Interpretation Comments HIV Negative Negative Semi-quantitative (test code = 15710-2) REGULO (test code = Non-reactive for HIV-1 REGULO) antigen and HIV-1/HIV-2 antibodies. ?No laboratory evidence of HIV infection. ?Repeat in 2-4 weeks if acute HIV infection is suspected. [facility]HIV [facility]/2 AG-AB WITH [id number] 13:55:48 Test Item Value Reference Range Interpretation Comments HIV Negative Negative Semi-quantitative (test code = 43366-9) REGULO (test code = Non-reactive for HIV-1 REGULO) antigen and HIV-1/HIV-2 antibodies. ?No laboratory evidence of HIV infection. ?Repeat in 2-4 weeks if acute HIV infection is suspected. [facility] HospitalType and Screen - ONCE [id number] 13:17:17 Test Item Value Reference Range Interpretation Comments ABO & RH (test code O Positive Performe d at [facility] = 20) Laboratory Serv [facility] - [facility] Blood Bank1 [address] [id number] Free: [phone] A No. [id number] IAT (test code = Negative Performed a t [facility] 1185) Laboratory [facility] Blood Bank1 [address] [place], [place] [address]Toll Free: [phone] A No. [id number] [facility] HospitalType and Screen - ONCE [id number] 13:17:17 Test Item Value Reference Range Interpretation Comments ABO & RH (test code O Positive Performe d at [facility] = 20) Laboratory [facility] Blood [address] [place], [place] [address]Toll Free: [phone] A No. [id number] IAT (test code = Negative Performed a t [facility] 1185) Laboratory [facility] Blood Bank[address] [place] [address] Free: [phone] A No. [id number] [facility] HospitalPOCT URINALYSIS W/O SPECIFIC [id number] 17:13:00 Test Item Value Reference Range Interpretation Comments POCT PH U (test code = 3254) n/a 5-8 POCT U LEUK EST (test code = n/a Negative - Negative 3263) POCT U NIT (test code = 3262) n/a Negative - Negative POCT U PROT (test code = 3259) trace Negative - Negative POCT U GLU (test code = 3256) negative Negative - Negative POCT U KETONE (test code = 3258) n/a Negative - Negative POCT U BLD (test code = 3257) n/a Negative - Negative [facility]PO[facility]ALYS[facility] W/O SPECIFIC [id number] 21:01:00 Test Item Value Reference Range Interpretation Comments POCT PH U (test code = 3254) n/a 5-8 POCT U LEUK EST (test code = n/a Negative - Negative 3263) POCT U NIT (test code = 3262) n/a Negative - Negative POCT U PROT (test code = 3259) Negative Negative - Negative POCT U GLU (test code = 3256) Negative Negative - Negative POCT U KETONE (test code = 3258) n/a Negative - Negative POCT U BLD (test code = 3257) n/a Negative - Negative Lab Interpretation (test code = Normal 11328-9) [facility] URINALYSIS W/O SPECIFIC [id number] 21:52:00 Test Item Value Reference Range Interpretation Comments POCT PH U (test code = 3254) n/a 5-8 POCT U LEUK EST (test code = n/a Negative - Negative 3263) POCT U NIT (test code = 3262) n/a Negative - Negative POCT U PROT (test code = 3259) Negative Negative - Negative POCT U GLU (test code = 3256) Negative Negative - Negative POCT U KETONE (test code = 3258) n/a Negative - Negative POCT U BLD (test code = 3257) n/a Negative - Negative Lab Interpretation (test code = Normal 82916-8) [facility] URINALYSIS W/O SPECIFIC [id number] 16:39:00 Test Item Value Reference Range Interpretation Comments POCT PH U (test code = 3254) n/a 5-8 POCT U LEUK EST (test code = n/a Negative - Negative 3263) POCT U NIT (test code = 3262) n/a Negative - Negative POCT U PROT (test code = 3259) Negative Negative - Negative POCT U GLU (test code = 3256) Negative Negative - Negative POCT U KETONE (test code = 3258) n/a Negative - Negative POCT U BLD (test code = 3257) n/a Negative - Negative Lab Interpretation (test code = Normal 94788-4) [facility] URINALYSIS W/O SPECIFIC [id number] 16:31:00 Test Item Value Reference Range Interpretation Comments POCT PH U (test code = 3254) n/a 5-8 POCT U LEUK EST (test code = 3263) n/a Negative - Negative POCT U NIT (test code = 3262) n/a Negative - Negative POCT U PROT (test code = 3259) neg Negative - Negative POCT U GLU (test code = 3256) neg Negative - Negative POCT U KETONE (test code = 3258) n/a Negative - Negative POCT U BLD (test code = 3257) n/a Negative - Negative [facility] W/O SPECIFIC [id number] 23:03:00 Test Item Value Reference Range Interpretation Comments POCT PH U (test code = 3254) n/a 5-8 POCT U LEUK EST (test code = n/a Negative - Negative 3263) POCT U NIT (test code = 3262) n/a Negative - Negative POCT U PROT (test code = 3259) Negative Negative - Negative POCT U GLU (test code = 3256) Negative Negative - Negative POCT U KETONE (test code = 3258) n/a Negative - Negative POCT U BLD (test code = 3257) n/a Negative - Negative Lab Interpretation (test code = Normal 83420-6) [facility]HIV [facility]-AB WITH [id number] 20:28:50 Test Item Value Reference Range Interpretation Comments HIV Negative Negative Semi-quantitative (test code = 98530-8) REGULO (test code = Non-reactive for HIV-1 REGULO) antigen and HIV-1/HIV-2 antibodies. ?No laboratory evidence of HIV infection. ?Repeat in 2-4 weeks if acute HIV infection is suspected. [facility]GL[facility] [id number] 19:47:19 Test Item Value Reference Range Interpretation Comments GLUC 1 HR (test code = 7515730233) 111 mg/dL 120-170 L Lab Interpretation (test code = Abnormal 62664-6) [facility]CBC WITH [id number] 17:17:17 Test Item Value Reference Range Interpretation Comments WBC (test code = See_Comment [Automated 1336-2) message] The sy stem which generated this result transmitted reference range : 4.30 - 11.10 10*3/?L. The reference range was not used to interpret this result as normal/abnormal . RBC (test code = See_Comment L [Automated 353-8) message] The sy stem which generated this result transmitted reference range : 3.93 - 5.25 10*6/?L. The reference range was not used to interpret this result as normal/abnormal . HGB (test code = 11.1 g/dL 11.6-15.0 L 718-7) HCT (test code = 34.4 % 35.7-45.2 L 4544-3) MCV (test code = 91.2 fL 80.6-95.5 787-2) MCH (test code = 29.4 pg 25.9-32.8 785-6) MCHC (test code = 32.3 g/dL 31.6-35.1 786-4) RDW-SD (test code = 41.9 fL 39.0-49.9 18995-7) RDW-CV (test code = 12.9 % 12.0-15.5 788-0) PLT (test code = See_Comment [Automated 777-3) message] The sy stem which generated this result transmitted reference range : 166 - 358 10*3/ ?L. The reference r donaldo was not used to interpret this result as normal/abnormal . MPV (test code = 10.3 fL 9.5-12.9 15151-5) NRBC/100 WBC (test See_Comment [Automat ed code = [id number]) message] The system which generated this result transmitted reference range : 0.0 - 10.0 /100 WBCs. The refer ence range was not u sed to interpret th is result as normal/abnormal . NRBC x10^3 (test code <0.01 See_Comment [Auto mated = [id number]) message] The s ystem which generated this result transmitted reference range : 10*3/?L. The reference range was not used to interpret this result as normal/abnormal . GRAN MAT (NEUT) % 80.8 % (test code = 770-8) IMM GRAN % (test code 0.50 % = [id number]) LYMPH % (test code = 12.9 % 736-9) MONO % (test code = 4.8 % 5905-5) EOS % (test code = 0.8 % 713-8) BASO % (test code = 0.2 % 706-2) GRAN MAT x10^3(ANC) 8.10 10*3/uL 1.88-7.09 H (test code = 3671227750) IMM GRAN x10^3 (test 0.05 10*3/uL 0.00-0.06 code = 9229368406) LYMPH x10^3 (test code 1.29 10*3/uL 1.32-3.29 L = 731-0) MONO x10^3 (test code 0.48 10*3/uL 0.33-0.92 = 742-7) EOS x10^3 (test code = 0.08 10*3/uL 0.03-0.39 711-2) BASO x10^3 (test code <0.03 0.01-0.07 = 704-7) Lab Interpretation Abnormal (test code = 45502-8) [facility] URINALYSIS W/O SPECIFIC [id number] 17:48:00 Test Item Value Reference Range Interpretation Comments POCT PH U (test code = 3254) n/a 5-8 POCT U LEUK EST (test code = n/a Negative - Negative 3263) POCT U NIT (test code = 3262) n/a Negative - Negative POCT U PROT (test code = 3259) negative Negative - Negative POCT U GLU (test code = 3256) negative Negative - Negative POCT U KETONE (test code = 3258) n/a Negative - Negative POCT U BLD (test code = 3257) n/a Negative - Negative [facility] URINALYSIS W/O SPECIFIC [id number] 13:19:00 Test Item Value Reference Range Interpretation Comments POCT PH U (test code = 3254) N/A 5-8 POCT U LEUK EST (test code = N/A Negative - Negative 3263) POCT U NIT (test code = 3262) N/A Negative - Negative POCT U PROT (test code = 3259) positive Negative - Negative POCT U GLU (test code = 3256) negative Negative - Negative POCT U KETONE (test code = 3258) N/A Negative - Negative POCT U BLD (test code = 3257) N/A Negative - Negative [facility] [id number] 07:00:00 Test Item Value Reference Range Interpretation Comments HCG SERUM (test 52081 INTERPRETATI ON:VALUES BETWEEN code = HCG) 15-20 milliInte rnational units/mL NEED T O BERETESTED WITHIN 48 HOURS . All units for these ranges ar e in milliInternatio nalunits/mL0-1 WK AFTER CONCEP TION 0-50 1-2 WKS AFTER RIP PTION 40-3002-3 WKS AFTER RIP PTION 100-1,0003-4 WK S AFTER CONCEPTION 500- 6,0001-2 MONTHS AFTER CONCEPTIO N 5,000-200,0002- 3 MONTHS AFTER CONCEPTION 10,0 00-100,0002ND TRIMESTER 3,000 -50,0003RD TRIMESTER 1,00 0-50,000 SPECIMENS WITH AN HCG LEVEL FROM 0-6 milliInternatio nalunits/mL SHOULD BE CONSI DERED NEGATIVE COMPREHENSIVE METABOLIC [id number] 06:42:00 Test Item Value Reference Range Interpretation Comments SODIUM (test code = NA) 137 mEq/L 135-145 N POTASSIUM (test code = K) 3.3 mEq/L 3.5-5.0 L CHLORIDE (test code = CL) 102 mEq/L 100-115 N CARBON DIOXIDE (test code = CO2) 25 mEq/L 22-31 N ANION GAP (test code = GAP) 13.40 10-20 N GLUCOSE (test code = GLU) 137 mg/dL 65-110 H BLOOD UREA NITROGEN (test code = 13 mg/dL 7-18 N BUN) GLOMERULAR FILTRATION RATE (test 91 ml/min >60 N code = GFR) CREATININE (test code = CREAT) 0.8 mg/dL 0.5-1.0 N TOTAL PROTEIN (test code = PROT) 6.8 gm/dL 6.3-8.2 N ALBUMIN (test code = ALB) 2.8 gm/dL 3.4-4.8 L CALCIUM (test code = CA) 8.5 mg/dL 8.4-10.2 N BILIRUBIN TOTAL (test code = BILT) 0.2 mg/dL 0.2-1.0 N SGOT/AST (test code = AST) 9 units/L 15-37 L SGPT/ALT (test code = ALT) 14 units/L 12-78 N ALKALINE PHOSPHATASE TOTAL (test 69 units/L 46-116 N code = ALKP) UA RFLX MICR CULT IF [id number] 06:40:00 Test Item Value Reference Range Interpretation Comments UA COLOR (test code = YELLOW YELLOW COLU) UA APPEARANCE (test CLEAR CLEAR code = APPU) UA GLUCOSE DIPSTICK NEGATIVE NEGATIVE (test code = DGLUU) UA BILIRUBIN DIPSTICK 1+ NEGATIVE A RESULT S MAY BE (test code = BILU) FALSELY E LEVATED. TEST RESULTS SH OULD BE INTERPRETED WITH CAREAS NO CONFIRMATORY TE ST IS AVAILABLE. UA KETONE DIPSTICK NEGATIVE NEGATIVE (test code = KETU) UA SPECIFIC GRAVITY >1.030 1.001-1.035 N (test code = SGU) UA BLOOD DIPSTICK 2+ NEGATIVE A (test code = YECENIA) UA PH DIPSTICK (test 6.0 5-9 code = WEST) UA PROTEIN DIPSTICK TRACE NEGATIVE A (test code = PROU) UA UROBILINIOGEN 0.2 mg/dL NEG DIPSTICK (test code = URO) UA NITRITE DIPSTICK NEGATIVE NEGATIVE (test code = JOSE L) UA LEUKOCYTE ESTERASE NEGATIVE NEG DIPSTICK (test code = LEUU) UA RBC (test code = 5-10 #/hpf NONE SEEN A RBCU) UA EPITHELIAL CELLS RARE #/HPF RARE-FEW (test code = EPIU) Indication for culture: Suprapubic PainSpecimen Description: CLEAN CATCHCBC W/AUTO [id number] 06:23:00 Test Item Value Reference Range Interpretation Comments WHITE BLOOD CELL (test code = WBC) 14.1 K/mm3 6.5-12.3 H RED BLOOD CELL (test code = RBC) 4.06 M/mm3 3.51-4.69 N HEMOGLOBIN (test code = HGB) 12.3 g/dL 10.1-13.8 N HEMATOCRIT (test code = HCT) 36.1 % 32.5-41.8 N MEAN CELL VOLUME (test code = MCV) 88.9 fL 84.6-96.6 N MEAN CELL HGB (test code = MCH) 30.3 pg 27.3-33.9 N MEAN CELL HGB CONCETRATION (test 34.1 gm/dL 32.0-34.2 N code = MCHC) RED CELL DISTRIBUTION WIDTH (test 12.7 % 12.2-16.3 N code = RDW) PLATELET COUNT (test code = PLT) 242 K/mm3 134-363 N MEAN PLATELET VOLUME (test code = 11.1 fL 9.2-12.7 N MPV) NEUTROPHIL % (test code = NT%) 83.0 % 57.9-77.3 H LYMPHOCYTE % (test code = LY%) 10.5 % 14.5-29.7 L MONOCYTE % (test code = MO%) 4.8 % 3.6-10.2 N EOSINOPHIL % (test code = EO%) 0.7 % 0.0-3.0 N BASOPHIL % (test code = BA%) 0.3 % 0.1-0.9 N NEUTROPHIL # (test code = NT#) 11.7 K/mm3 LYMPHOCYTE # (test code = LY#) 1.5 K/mm3 MONOCYTE # (test code = MO#) 0.7 K/mm3 EOSINOPHIL # (test code = EO#) 0.10 K/mm3 BASOPHIL # (test code =

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
[2022-07-17 21:56] VITALS: TEMP 98
[2022-07-17 22:00] VITALS: O2SAT 98
[2022-07-17 22:02] VITALS: BP 133/69
== END 2022-07-17 21:52 | disposition home or self-care (01) ==
LOC: ER 17:48
DX: Z04.41 Encounter for examination and observation following alleged adult rape (principal)
CPT/HCPCS: 99283

== ENCOUNTER 2023-06-28 18:04 | Emergency (ER) | payer BC, OTHER ==
--- OUTSIDE RECORDS SUMMARY | 2023-06-28 18:09 | XMS REPORT | Continuity of Care Document ---
Author Name Unknown Address [address] [facility] [address] [place] [address] [facility] thconnect Address [address] [facility] [address] [place] [address] Care Team Providers Care Offal Baler Name Role Phone Artemio Lawler Primary Care Physician [phone] Jackson Sandy MD Attending Clinician [phone] JACKSON SANDY Attending Clinician Unavailable Nurse, [facility] Attending Clinician Unavailable Doctor Unassigned, [place] Attending Clinician U navailable Only, Adc Test Attending Clinician Unavailable Lawrence Soto MD Attending Clinician [phone] Pob, [facility] Main Attending Clinician Unavailabl e Ultrasound, Ang-Mfm Attending Clinician UnavailErin Rosales MD Attending Clinician [phone] ERIN CUBA Attending Clinician Unavailable ERIN CUBA Attending Clinician Unavailable DEVON BOO Attending Clinician Unavailable Devon Boo MD Attending Clinician [phone] Balta Diaz Attending Clinician Clementine vailaChris Bonilla B Attending Clinician [phone] CHRIS GARCIA Attending Clinician Unavailable IFRAH TORRES M.D. Attending Clinician JUWAN Mays P.A. Attending Clinician JAZMYN Clark NP Attending Clinician Nneka dacosta ATHLETIC, SHOPPER Attending Clinician MANISHA Love P.A. Attending Clinician JACKSON Ann Admitting Clinician Jackson Olguin MD Admitting Clinician Physician, No Primary or Family Admitting Clinic brenda Unavailable Payers Payer Name Policy Type Policy Number Effective Date Expirati on Date Source [facility] [id number] 2018 00:00:00 [employer] MEDICAID [id number] 2020 00:00:00 [place] [id number] 2020 00:00:00 [facility] PPO/POS [id number] 2014 00:00:00 Problems Condition Name Condition Details Condition Category Status Onset Date Resolution Date Last Treatment Date Treating Clinician Comments Source Liveborn , of armenta , born in hospital by delivery Liveborn infant, of armenta , born in hospital by delivery Disease Active 2-15 00:00: 00 [facility] Labor and delivery, indication for care Labor and delivery, indication for care Disease Active 2-14 00:00: 00 [facility] Obesity (BMI 30-39.9) Obesity (BMI 30-39.9) Disease Active 1-07 00:00: 00 [facility] Obesity in Obesity in Disease Active 9-08 00:00: 00 [facility] History of COVID-19 History of COVID-19 Disease Active 8-10 00:00: 00 [facility] Supervisio n of high risk in third trimester Supervisio n of high risk in third trimester Disease Active 7-13 00:00: 00 [facility] Nausea/vom iting in Nausea/vom iting in Disease Active 7- 00:00: 00 [facility] Gastroesop hageal reflux disease without esophagiti s Gastroesop hageal reflux disease without esophagiti s Disease Active 08-22 00:00: 00 [facility] Generalize d anxiety disorder Generalize d anxiety disorder Disease Active 08-22 00:00: 00 [facility] Depression affecting in third trimester, 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, antepartum Disease Active 08-22 00:00: 00 [facility] Mild intermitte nt asthma without complicati on Mild intermitte nt asthma without complicati on Disease Active 08-22 00:00: 00 [facility] H/O section H/O section Disease Active 08-22 00:00: 00 [facility] Right knee pain Right [facility] pain [facility] injury tear Problem Active [facility] No known active problems No known active problems Disease [facility] Allergies, Adverse Reactions, Alerts Allergy Name Allergy Type Status Severity Reaction(s) Onset Date Inactive Date Treating Clinician Comments Source No Known Allergie s DA Active U 10-31 00:00: 00 [facility] No Known Allergie s DA Active U 10-31 00:00: 00 [facility] NO KNOWN ALLERGIE S Drug Class Active [facility] Social History Social Habit Start Date Stop Date Quantity Comments Source ASSERTION 2020-07-21 00:00:00 [facility] Exposure to SARS-CoV-2 (event) Not sure [facility] Alcohol intake 2021-05-22 00:00:00 2021-05-22 00:00:00 Lifetime non-drinker (finding) [facility] Tobacco use and exposure 2020-08-20 00:00:00 2020-08-20 00:00:00 Smokeless tobacco non-user [facility] Sex Assigned At 2000 00:00:00 2000 00:00:00 [facility] Smoking Status Start Date Stop Date Source Unknown if ever smoked [facility] Never smoked tobacco [facility] Medications Ordered Medication Name Filled Medication Name Start Date Stop Date Current Medication? Ordering Clinician Indication Dosage Frequency Signature (SIG) Comments Components Source SERTraline 25 mg tablet 05-22 00:00: 00 Yes [id number] 25mg Take 1 tablet by mouth daily. [facility] ibuprofen (IBU) tablet 800 mg 04-09 03:00: 00 04-09 01:58 :00 No 800mg 800 mg, Oral, ONCE, 1 dose, On Wed04/08/21 at 2100, Routine [facility] vit calc,iron,f olic ( VITAMIN ORAL) 04-08 20:35: 27 Yes Take by mouth. [facility] vit calc,iron,f olic ( VITAMIN ORAL) 04-08 09:31: 14 Yes Take by mouth. [facility] acetaminoph en (TYLENOL) tablet 650 mg 04-08 00:00: 00 Yes 650mg 650 mg, Oral, Q6H, First dose on Wed04/07/21 at 1800, Until Discontinu ed, Routine [facility] docusate calcium 240 mg capsule 04-08 00:00: 00 Yes [id number] 240mg Take 1 capsule by mouth once daily as needed for Constipati on. [facility] ferrous sulfate 325 mg (65 mg iron) tablet 04-08 00:00: 00 Yes [id number] 325mg Take 1 tablet by mouth daily. [facility] ibuprofen 600 mg tablet 04-08 00:00: 00 Yes [id number] 600mg Take 1 tablet by mouth every 6 (six) hours as needed (Pain). Take with food or milk. [facility] oxyCODONE-a cetaminophe n 5-325 mg per tablet 04-08 00:00: 00 04-16 05:59 :00 No [id number] 1{tbl} Take 1 tablet by mouth every 6 (six) hours as needed for Pain (scale 7-10) for up to 7 days. Indication s: acute pain [facility] ketorolac (TORADOL) injection 30 mg 04-07 20:00: 00 04-08 15:09 :00 No 30mg 30 mg, Slow IV Push, Q6H ABX, 4 doses, First dose on Wed04/07/21 at 1400, Last dose on Wed04/08/21 at 0800, Routine [facility] simethicone (MYLICON) chewable tablet 125 mg 04-07 19:00: 00 Yes 125mg 125 mg, Oral, PC+HS, First dose on Wed04/07/21 at 1300, Until Discontinu ed, Routine [facility] lactated ringers IV infusion 1,000 mL 04-07 18:15: 00 04-08 01:49 :00 No 1000mL at 125 mL/hr, 1,000 mL, IV Infusion, ONCE, 1 dose, On Wed04/07/21 at 1215, Routine [facility] rho(D) immune globulin (RHOGAM) syringe 300 mcg 04-07 17:15: 17 Yes 300ug 300 mcg, Intramuscu lar, ONCE, For 1 dose, Conditiona l, Routine [facility] oxyCODONE immediate release tablet 10 mg 04-07 17:14: 50 Yes 10mg 10 mg, Oral, Q6HPRN, Starting on Wed04/07/21 at 1114, Until Discontinu ed, Routine, Pain (scale 7-10)
F aculty member approving Restricted medication : JACKSON SANDY [facility] oxyCODONE immediate release tablet 5 mg 04-07 17:14: 32 Yes 5mg 5 mg, Oral, Q6HPRN, Starting on Wed04/07/21 at 1114, Until Discontinu ed, Routine, Pain (scale 4-6)
Fa culty member approving Restricted medication : JACKSON SANDY [facility] diphenhydrA MINE (BENADRYL) injection 25 mg 04-07 17:11: 32 Yes 25mg 25 mg, Slow IV Push, Q6HPRN, Starting on Wed04/07/21 at 1111, Until Discontinu ed, Routine, Itching [facility] diphenhydrA MINE (BENADRYL) tablet 25 mg 04-07 17:11: 32 Yes 25mg 25 mg, Oral, Q6HPRN, Starting on Wed04/07/21 at 1111, Until Discontinu ed, Routine, Sleep, Itching [facility] ondansetron (ZOFRAN (PF)) injection 4 mg 04-07 17:11: 32 Yes 4mg 4 mg, Slow IV Push, Q8HPRN, Starting on Wed04/07/21 at 1111, Until Discontinu ed, Routine, Nausea and Vomiting (N/V) [facility] bisacodyL (DULCOLAX) suppository 10 mg 04-07 17:11: 32 Yes 10mg 10 mg, Rectal, QDAILYPRN, Starting on Wed04/07/21 at 1111, Until Discontinu ed, Routine, Constipati on [facility] docusate calcium (SURFAK) capsule 240 mg 04-07 17:11: 32 Yes 240mg 240 mg, Oral, QDAILYPRN, Starting on Wed04/07/21 at 1111, Until Discontinu ed, Routine, Constipati on [facility] magnesium hydroxide (MILK OF MAGNESIA) 400 mg/5 mL suspension 30 mL 04-07 17:11: 32 Yes 30mL 30 mL, Oral, QDAILYPRN, Starting on Wed04/07/21 at 1111, Until Discontinu ed, Routine, Constipati on [facility] sodium chloride 0.9 % irrigation solution 04-07 15:30: 00 Yes PRN, Starting on Wed04/07/21 at 0930, Until Discontinu ed, Intra-op [facility] ceFAZolin in 0.9% sodium chloride (ANCEF) 2 gram/100 mL RTU 2 g 04-07 13:40: 18 04-07 14:19 :00 No 2000mg 2 g (2,000 mg), IV Piggyback, O.R. HOLDING ONCE, 1 dose, Starting on Wed04/07/21 at 0740, Until Discontinu ed, Administer over 30 Minutes
Reason for Anti-Infec tive: Surgical Prophylaxi s
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
Duration of therapy: within 24 hours of surgery [facility] lactated ringers IV infusion 1,000 mL 04-07 11:45: 00 04-07 17:15 :18 No 1000mL at 125 mL/hr, 1,000 mL, IV Infusion, CONTINUOUS , Starting on Wed04/07/21 at 0545, Until Wed04/07/21 at 1115, Routine [facility] sodium citrate-cit grecia acid (BICITRA) 500-334 mg/5 mL solution 30 mL 04-07 11:29: 47 04-07 13:45 :00 No 30mL 30 mL, Oral, PRE-PROCED URE ONCE, 1 dose, Starting on Wed04/07/21 at 0529, Until Discontinu ed, Routine, Surgery/Pr ocedure [facility] clobetasoL 0.05 % ointment 03-20 00:00: 00 03-27 00:00 :00 No [id number] Apply to area(s) 2 (two) times daily. [facility] vit calc,iron,f olic ( VITAMIN ORAL) 03-14 09:45: 27 Yes Take by mouth. [facility] fluconazole 200 mg tablet 03-14 00:00: 00 03-27 00:00 :00 No [id number] 200mg Take 1 tablet by mouth daily. [facility] vit calc,iron,f olic ( VITAMIN ORAL) 03-13 21:46: 08 Yes Take by mouth. [facility] vit calc,iron,f olic ( VITAMIN ORAL) 2020-02 13:53: 26 Yes Take by mouth. [facility] ferrous sulfate 325 mg (65 mg iron) tablet 2020-02 08:17: 09 12-02 00:00 :00 No 325mg Take 325 mg by mouth daily. [facility] cefdinir 300 mg capsule 2020-0211 00:00: 00 12-13 04:59 :00 No [id number] 300mg Take 1 capsule by mouth every 12 (twelve) hours for 10 days. [facility] docusate (COLACE) 100 mg capsule 11-01 00:00: 00 01-23 00:00 :00 No [id number] 100mg Take 1 capsule by mouth 2 (two) times daily. [facility] simethicone 80 mg chewable tablet 11-01 00:00: 00 01-23 00:00 :00 No [id number] 80mg Take 1 tablet by mouth after meals and at bedtime. [facility] ondansetron (ZOFRAN) 4 mg tablet 09-26 00:00: 00 01-23 00:00 :00 No [id number] 4mg Take 1 tablet by mouth every 8 (eight) hours as needed for Nausea and Vomiting (N/V). [facility] vit calc,iron,f olic ( VITAMIN ORAL) 09-03 16:14: 12 Yes Take by mouth. [facility] ondansetron (ZOFRAN) 4 mg tablet 09-03 00:00: 00 12-02 00:00 :00 No [id number] 4mg Take 1 tablet by mouth every 8 (eight) hours as needed for Nausea and Vomiting (N/V). [facility] proMETHazin e 25 mg tablet 08-24 00:00: 00 01-23 00:00 :00 No [id number] 25mg Take 1 tablet by mouth every 6 (six) hours as needed for Nausea and Vomiting (N/V). [facility] proMETHazin e 25 mg suppository 08-24 00:00: 00 01-23 00:00 :00 No [id number] 25mg Insert 1 Suppositor y into rectum every 6 (six) hours as needed for Nausea and Vomiting (N/V) or N/V unresponsi ve to oral antiemetic s. [facility] famotidine 40 mg tablet 08-20 00:00: 00 12-02 00:00 :00 No [id number] 40mg Take 1 tablet by mouth daily. [facility] pyridoxine, VITAMIN B-6, 25 mg tablet 08-20 00:00: 00 12-02 00:00 :00 No [id number] 25mg Take 1 tablet by mouth 3 (three) times daily. [facility] doxylamine 25 mg tablet 08-20 00:00: 00 12-02 00:00 :00 No [id number] 25mg Take 1 tablet by mouth at bedtime. [facility] Vital Signs Vital Name Observation Time Observation Value Comments S ourdennis Systolic blood pressure 2021-05-22 18:35:00 110 mm[Hg] [facility] Diastolic blood pressure 2021-05-22 18:35:00 73 mm[Hg] [facility] Heart rate 2021-05-22 18:35:00 71 /min [facility] Respiratory rate 2021-05-22 18:35:00 18 /min [facility] Body height 2021-05-22 18:35:00 157.5 cm [facility] Body weight 2021-05-22 18:35:00 89.982 kg [facility] BMI 2021-05-22 18:35:00 36.28 kg/m2 [facility] Systolic blood pressure 2021-04-28 04:09:00 122 mm[Hg] [facility] Diastolic blood pressure 2021-04-28 04:09:00 78 mm[Hg] [facility] Heart rate 2021-04-28 04:09:00 62 /min [facility] Body temperature 2021-04-28 04:09:00 36.78 [facility] Respiratory rate 2021-04-28 04:09:00 18 /min [facility] Body height 2021-04-28 04:09:00 157.5 cm [facility] Body weight 2021-04-28 04:09:00 91.808 kg [facility] BMI 2021-04-28 04:09:00 37.02 kg/m2 [facility] Systolic blood pressure 2021-04-16 17:44:00 105 mm[Hg] [facility] Diastolic blood pressure 2021-04-16 17:44:00 56 mm[Hg] [facility] Heart rate 2021-04-16 17:44:00 60 /min [facility] Body temperature 2021-04-16 17:44:00 36.83 [facility] Respiratory rate 2021-04-16 17:44:00 20 /min [facility] Body weight 2021-04-16 17:44:00 93.611 kg [facility] BMI 2021-04-16 17:44:00 37.75 kg/m2 [facility] Systolic blood pressure 2021-04-08 22:20:00 124 mm[Hg] [facility] Diastolic blood pressure 2021-04-08 22:20:00 52 mm[Hg] [facility] Heart rate 2021-04-08 22:20:00 79 /min [facility] Body temperature 2021-04-08 22:20:00 36.72 [facility] Oxygen saturation in Arterial blood by Pulse oximetry 2021-04-08 22:20:00 98 /min [facility] Respiratory rate 2021-04-08 09:00:00 18 /min [facility] Body height 2021-04-07 11:30:00 157.5 cm [facility] Body weight 2021-04-07 11:30:00 101.606 kg [facility] BMI 2021-04-07 11:30:00 40.97 kg/m2 [facility] Systolic blood pressure 2021-04-07 12:30:00 135 mm[Hg] [facility] Diastolic blood pressure 2021-04-07 12:30:00 73 mm[Hg] [facility] Heart rate 2021-04-07 12:30:00 84 /min [facility] Oxygen saturation in Arterial blood by Pulse oximetry 2021-04-07 12:30:00 99 /min [facility] Body temperature 2021-04-07 11:30:00 36.67 [facility] Respiratory rate 2021-04-07 11:30:00 20 /min [facility] Body height 2021-04-07 11:30:00 157.5 cm [facility] Body weight 2021-04-07 11:30:00 101.606 kg [facility] BMI 2021-04-07 11:30:00 40.97 kg/m2 [facility] Systolic blood pressure 2021-04-03 17:18:00 114 mm[Hg] [facility] Diastolic blood pressure 2021-04-03 17:18:00 79 mm[Hg] [facility] Heart rate 2021-04-03 17:18:00 106 /min [facility] Body temperature 2021-04-03 17:18:00 36.72 [facility] Respiratory rate 2021-04-03 17:18:00 20 /min [facility] Body height 2021-04-03 17:18:00 157.5 cm [facility] Body weight 2021-04-03 17:18:00 99.565 kg [facility] BMI 2021-04-03 17:18:00 40.15 kg/m2 [facility] Systolic blood pressure 2021-03-27 20:42:00 120 mm[Hg] [facility] Diastolic blood pressure 2021-03-27 20:42:00 76 mm[Hg] [facility] Heart rate 2021-03-27 20:42:00 52 /min [facility] Body temperature 2021-03-27 20:42:00 36.67 [facility] Respiratory rate 2021-03-27 20:42:00 18 /min [facility] Body height 2021-03-27 20:42:00 157.5 cm [facility] Body weight 2021-03-27 20:42:00 100.653 kg [facility] BMI 2021-03-27 20:42:00 40.59 kg/m2 [facility] Systolic blood pressure 2021-03-20 21:41:00 111 mm[Hg] [facility] Diastolic blood pressure 2021-03-20 21:41:00 75 mm[Hg] [facility] Heart rate 2021-03-20 21:41:00 88 /min [facility] Body temperature 2021-03-20 21:41:00 36.78 [facility] Respiratory rate 2021-03-20 21:41:00 18 /min [facility] Body height 2021-03-20 21:41:00 157.5 cm [facility] Body weight 2021-03-20 21:41:00 100.064 kg [facility] BMI 2021-03-20 21:41:00 40.35 kg/m2 [facility] Systolic blood pressure 2021-03-14 02:00:00 125 mm[Hg] [facility] Diastolic blood pressure 2021-03-14 02:00:00 70 mm[Hg] [facility] Heart rate 2021-03-14 02:00:00 87 /min [facility] Body temperature 2021-03-14 02:00:00 37.06 [facility] Respiratory rate 2021-03-14 02:00:00 16 /min [facility] Body height 2021-03-14 02:00:00 157.5 cm [facility] Body weight 2021-03-14 02:00:00 99.701 kg [facility] BMI 2021-03-14 02:00:00 40.19 kg/m2 [facility] Oxygen saturation in Arterial blood by Pulse oximetry 2021-03-14 02:00:00 100 /min [facility] Systolic blood pressure 2021-03-13 16:34:00 129 mm[Hg] [facility] Diastolic blood pressure 2021-03-13 16:34:00 80 mm[Hg] [facility] Heart rate 2021-03-13 16:34:00 83 /min [facility] Body temperature 2021-03-13 16:34:00 36.72 [facility] Respiratory rate 2021-03-13 16:34:00 18 /min [facility] Body height 2021-03-13 16:34:00 157.5 cm [facility] Body weight 2021-03-13 16:34:00 99.746 kg [facility] BMI 2021-03-13 16:34:00 40.22 kg/m2 [facility] Systolic blood pressure 2021-02-28 16:30:00 118 mm[Hg] [facility] Diastolic blood pressure 2021-02-28 16:30:00 77 mm[Hg] [facility] Heart rate 2021-02-28 16:30:00 76 /min [facility] Body temperature 2021-02-28 16:30:00 36.78 [facility] Respiratory rate 2021-02-28 16:30:00 18 /min [facility] Body height 2021-02-28 16:30:00 157.5 cm [facility] Body weight 2021-02-28 16:30:00 97.523 kg [facility] BMI 2021-02-28 16:30:00 39.32 kg/m2 [facility] Systolic blood pressure 2021-02-03 22:26:00 119 mm[Hg] [facility] Diastolic blood pressure 2021-02-03 22:26:00 75 mm[Hg] [facility] Heart rate 2021-02-03 22:26:00 69 /min [facility] Body temperature 2021-02-03 22:26:00 36.67 [facility] Respiratory rate 2021-02-03 22:26:00 18 /min [facility] Body height 2021-02-03 22:26:00 157.5 [facility] 2021-02-03 22:26:00 98.294 kg [facility] BMI 2021-02-03 22:26:00 39.63 kg/m2 [facility] Diastolic blood pressure 2021-01-20 17:53:00 49 mm[Hg] [facility] Heart rate 2021-01-20 17:53:00 103 /min [facility] Body temperature 2021-01-20 17:53:00 36.5 [facility] Respiratory rate 2021-01-20 17:53:00 18 /min [facility] Body height 2021-01-20 17:53:00 157.5 cm [facility] Body weight 2021-01-20 17:53:00 98.629 kg [facility] BMI 2021-01-20 17:53:00 39.77 kg/m2 [facility] Systolic blood pressure 2021-01-20 17:53:00 104 mm[Hg] [facility] Systolic blood pressure 2020-12-30 17:25:00 111 mm[Hg] [facility] Diastolic blood pressure 2020-12-30 17:25:00 72 mm[Hg] [facility] Heart rate 2020-12-30 17:25:00 81 /min [facility] Body temperature 2020-12-30 17:25:00 36.72 [facility] Respiratory rate 2020-12-30 17:25:00 18 /min [facility] Body height 2020-12-30 17:25:00 157.5 cm [facility] Body weight 2020-12-30 17:25:00 97.115 kg [facility] BMI 2020-12-30 17:25:00 39.16 kg/m2 [facility] Systolic blood pressure 2020-12-02 13:16:00 99 mm[Hg] [facility] Diastolic blood pressure 2020-12-02 13:16:00 59 mm[Hg] [facility] Heart rate 2020-12-02 13:16:00 103 /min [facility] Respiratory rate 2020-12-02 13:16:00 18 /min [facility] Body height 2020-12-02 13:16:00 157.5 cm [facility] Body weight 2020-12-02 13:16:00 96.798 kg [facility] BMI 2020-12-02 13:16:00 39.03 kg/m2 [facility] Oxygen saturation in Arterial blood by Pulse oximetry 2020-12-02 13:16:00 98 /min [place] [facility] Procedures Procedure Date / Time Performed Performing Clinician Source DME/SUPPLY JUSTIFICATION 2021-04-14 06:01:00 Doc tor Unassigned, [facility] CBC WITH DIFF 2021-04-08 09:03:00 Fish, [facility] CBC WITH DIFF 2021-04-08 09:03:00 Fish, [facility] SECTION 2021-04-07 14:37:00 Fish, [facility] SECTION 2021-04-07 14:37:00 Fish, [facility] HEPATITIS B SURFACE ANTIGEN 2021-04-07 12:11:00 Fish, [facility] ADC OR NICK ONLY - RPR 2021-04-07 12:11:00 Fish, [facility] HIV 1/2 AG-AB WITH REFLEX 2021-04-07 12:11:00 Fish, [facility] HEPATITIS B SURFACE ANTIGEN 2021-04-07 12:11:00 Fish, [facility] ADC OR NICK ONLY - RPR 2021-04-07 12:11:00 Fish, [facility] HIV 1/2 AG-AB WITH REFLEX 2021-04-07 12:11:00 Fish, [facility] HB ABO GROUPING 2021-04-07 12:00:00 Fish, [facility] RHO (D) IMMUNE GLOBULIN 2021-04-07 12:00:00 Fish, [facility] HB ABO GROUPING 2021-04-07 12:00:00 Fish, [facility] RHO (D) IMMUNE GLOBULIN 2021-04-07 12:00:00 Fish, [facility] CBC WITH DIFF 2021-04-04 16:57:00 Fish, [facility] ASSIGNMENT OF BENEFITS 2021-04-04 16:24:17 Docto r Unassigned, [facility] POCT URINALYSIS W/O SPECIFIC GRAVITY 2021-04-03 00:00:00 Fish, [facility] POCT URINALYSIS W/O SPECIFIC GRAVITY 2021-03-27 21:01:00 Fish, [facility] POCT URINALYSIS W/O SPECIFIC GRAVITY 2021-03-20 21:52:00 Fish, [facility] DISCLOSURE AND CONSENT, MEDICAL AND SURGICAL PROCEDURES 2021-03-20 06:01:00 Doctor Unassigned, [facility] ADC ONLY - FERN TEST 2021-03-14 02:43:00 [facility] COVID-19 (ID NOW RAPID TESTING) 2021-03-14 02:43:00 Luanne [facility] CONSENT/REFUSAL FOR DIAGNOSIS AND TREATMENT 2021-03-14 01:34:45 Doctor Unassigned, [facility] CONSENT/REFUSAL FOR DIAGNOSIS AND TREATMENT 2021-03-14 01:34:45 Doctor Unassigned, [facility] ASSIGNMENT OF BENEFITS 2021-03-14 01:33:44 Docto r Unassigned, [facility] ASSIGNMENT OF BENEFITS 2021-03-14 01:33:44 Docto r Unassigned, [facility] POCT URINALYSIS W/O SPECIFIC GRAVITY 2021-03-13 16:38:00 Fish, [facility] POCT URINALYSIS W/O SPECIFIC GRAVITY 2021-02-28 00:00:00 Fish, [facility] POCT URINALYSIS W/O SPECIFIC GRAVITY 2021-02-03 23:02:00 Fish, [facility] GLUCOSE 1 HOUR POST PRANDIAL 2021-01-31 17:00:00 Fish, [facility] CBC WITH DIFF 2021-01-31 17:00:00 Fish, [facility] HIV 1/2 AG-AB WITH REFLEX 2021-01-31 17:00:00 Fish, [facility] ASSIGNMENT OF BENEFITS 2021-01-31 15:41:50 Docto r Unassigned, [facility] POCT URINALYSIS W/O SPECIFIC GRAVITY 2021-01-20 00:00:00 [facility] POCT URINALYSIS W/O SPECIFIC GRAVITY 2020-12-02 13:19:00 [facility] [U] XRAY KNEE 3 VWS RIGHT [id number] 2017-03-29 00:00:00 [facility] Start Date/Time End Date/Time Encounter Type Admission Type Attending Clinicians Care Facility Care Department Encounter ID Source 2021-05-29 09:16:09 Outpatient [facility] [id number] [facility] 2021-03-13 21:46:17 Outpatient P [facility] [id number] [facility] 2021-10-22 00:00:00 2021-10-22 00:00:00 Telephone Jackson Sandy [facility] 1..840.114 350.1.13.10 4.2.7.2.686 [id number] 134 [id number] [facility] 2021-06-05 10:30:00 2021-06-05 10:30:00 Outpatient R JACKSON SANDY [facility] [id number] [facility] 2021-05-22 13:30:00 2021-05-22 14:05:35 Outpatient R JACKSON SANDY [facility] [id number] [facility] 2021-05-22 13:30:00 2021-05-22 14:05:35 Routine Visit Jackson Sandy [facility] 1..840.114 350.1.13.10 4.2.7.2.686 [id number] 134 [id number] [facility] 2021-04-23 10:00:00 2021-04-23 10:27:11 Outpatient R JACKSON SANDY [facility] [id number] [facility] 2021-04-23 10:00:00 2021-04-23 10:27:11 Routine Visit Jackson Sandy [facility] 1.2.840.114 350.1.13.10 4.2.7.2.686 [id number] 134 [id number] [facility] 2021-04-22 16:00:00 2021-04-22 16:00:00 Outpatient R JACKSON SANDY [facility] [id number] [facility] 2021-04-21 10:00:00 2021-04-21 10:00:00 Outpatient R JACKSON SANDY [facility] [id number] [facility] 2021-04-16 11:00:00 2021-04-16 11:18:59 Outpatient R JACKSON SANDY [facility] [id number] [facility] 2021-04-16 11:00:00 2021-04-16 11:18:59 Nurse Visit Nurse, j [facility] Du Jackson [facility] 1.2.840.114 350.1.13.10 4.2.7.2.686 [id number] 134 [id number] [facility] 2021-04-14 00:00:00 2021-04-14 00:00:00 Orders Only Doctor Unassigned, [place] [facility] 1.2.840.114 350.1.13.10 4.2.7.2.686 [id number] [id number] [facility] 2021-04-09 00:00:00 2021-04-09 00:00:00 Telephone Du [facility] 1.2840.114 350.1.13.10 4.2.7.2.686 [id number] 134 [id number] [facility] 2021-04-07 05:14:00 2021-04-08 20:20:00 Inpatient P JACKSON SANDY [facility] [id number] [facility] 2021-04-07 05:14:00 2021-04-08 20:20:00 Hospital Encounter Jackson Sandy [facility] 1.2840.114 350.1.13.10 4.2.7.2.686 [id number] 083 [id number] [facility] 2021-04-07 07:30:00 2021-04-07 08:45:00 Surgery Du [facility] 1.2840.114 350.1.13.10 4.2.7.2.686 [id number] [id number] [facility] 2021-04-04 10:15:00 2021-04-04 10:30:00 Laboratory Only Only, Adc Test Lawrence Soto Jackson [facility] 1.2840.114 350.1.13.10 4.2.7.2.686 [id number] [facility] 2021-04-04 10:15:00 2021-04-04 10:15:00 Outpatient R JACKSON SANDY [facility] [id number] [facility] 2021-04-04 10:00:00 2021-04-04 10:15:00 Vibrating Screed Operator Visit Pob, Adc Lab Main Lawrence Soto [facility] 1.840.114 350.1.13.10 4.2.7.2.686 [id number] [facility] 2021-04-04 00:00:00 2021-04-04 00:00:00 Orders Only Doctor Unassigned, [place] [facility] 1.0.114 350.1.13.10 4.2.7.2.686 [id number] [id number] [facility] 2021-04-03 10:45:00 2021-04-03 11:35:35 Outpatient R JACKSON SANDY [facility] [id number] [facility] 2021-04-03 10:45:00 2021-04-03 11:35:35 Routine Visit Jackson Sandy [facility] 1.2.840.114 350.1.13.10 4.2.7.2.686 [id number] 134 [id number] [facility] 2021-03-27 14:15:00 2021-03-27 14:57:58 Outpatient R JACKSON SANDY [facility] [id number] [facility] 2021-03-27 14:15:00 2021-03-27 14:57:58 Routine Visit Du [facility] 1.2.840.114 350.1.13.10 4.2.7.2.686 [id number] 134 [id number] [facility] 2021-03-27 00:00:00 2021-03-27 00:00:00 Telephone Du [facility] 1.2.840.114 350.1.13.10 4.2.7.2.686 [id number] 134 [id number] [facility] 2021-03-20 14:45:00 2021-03-20 16:09:20 Outpatient R JACKSON SANDY [facility] [id number] [facility] 2021-03-20 14:45:00 2021-03-20 16:09:20 Routine Visit Du [facility] 1.2.840.114 350.1.13.10 4.2.7.2.686 [id number] 134 [id number] [facility] 2021-03-20 00:00:00 2021-03-20 00:00:00 Orders Only Doctor Unassigned, [place] [facility] 1.2.840.114 350.1.13.10 4.2.7.2.686 [id number] [id number] [facility] 2021-03-17 13:00:00 2021-03-17 13:30:00 Vibrating Screed Operator Visit Ultrasound, Erin Kraus [facility] SOFTWARE SALES CONSULTANT [facility] 1..840.114 350.1.13.10 4.2.7.2.686 [id number] [facility] 2021-03-17 13:00:00 2021-03-17 13:00:00 Outpatient P ERIN CUBA SHANNON [facility] [id number] [facility] 2021-03-14 00:00:00 2021-03-14 00:00:00 Telephone Jackson Sandy [facility] 1.840.114 350.1.13.10 4.2.7.2.686 [id number] 134 [id number] [facility] 2021-03-13 19:55:00 2021-03-13 21:43:00 Outpatient P JACKSON SANDY [facility] [id number] [facility] 2021-03-13 19:55:00 2021-03-13 21:43:00 Hospital Encounter Jackson Sandy [facility] 1..840.114 350.1.13.10 4.2.7.2.686 [id number] [facility] 2021-03-13 10:15:00 2021-03-13 10:54:22 Outpatient R JACKSON SANDY [facility] [id number] [facility] 2021-03-13 10:15:00 2021-03-13 10:54:22 Routine Visit Jackson Sandy [facility] 1.840.114 350.1.13.10 4.2.7.2.686 [id number] 134 [id number] [facility] 2021-03-05 11:30:00 2021-03-05 11:30:00 Outpatient R [facility] [id number] [facility] 2021-02-28 10:15:00 2021-02-28 11:35:37 Outpatient R JACKSON SANDY [facility] [id number] [facility] 2021-02-28 10:15:00 2021-02-28 11:35:37 Routine Visit Jackson Sandy [facility] 1.84.114 350.1.13.10 4.2.7.2.686 [id number] 134 [id number] [facility] 2021-02-17 13:00:00 2021-02-17 13:00:00 Outpatient R JACKSON SANDY [facility] [id number] [facility] 2021-02-12 00:00:00 2021-02-12 00:00:00 Telephone Jackson Sandy [facility] 1.84.114 350.1.13.10 4.2.7.2.686 [id number] 134 [id number] [facility] 2021-02-03 16:15:00 2021-02-03 16:48:33 Outpatient R JACKSON SANDY [facility] [id number] [facility] 2021-02-03 16:02:10 2021-02-03 16:48:33 Routine Visit Jackson Sandy [facility] 1.84.114 350.1.13.10 4.2.7.2.686 [id number] 134 [id number] [facility] 2021-01-31 09:41:08 2021-01-31 09:56:08 Vibrating Screed Operator Visit Pob, Adc Lab Main Jackson Sandy [facility] 1..840.114 350.1.13.10 4.2.7.2.686 [id number] [facility] 2021-01-31 09:45:00 2021-01-31 09:45:00 Outpatient R JACKSON SANDY [facility] [id number] [facility] 2021-01-31 00:00:00 2021-01-31 00:00:00 Orders Only Doctor Unassigned, [place] [facility] 1..114 350.1.13.10 4.2.7.2.686 [id number] [id number] [facility] 2021-01-31 00:00:00 2021-01-31 00:00:00 Telephone Jackson Sandy [facility] 1..114 350.1.13.10 4.2.7.2.686 [id number] 134 [id number] [facility] 2021-01-20 11:17:02 2021-01-20 11:32:02 Routine Visit [facility] 1..114 350.1.13.10 4.2.7.2.686 [id number] 134 [id number] [facility] 2021-01-20 11:15:00 2021-01-20 11:15:00 Outpatient R DUKANDIN [facility] [id number] [facility] 2021-01-03 14:00:00 2021-01-03 12:47:50 Outpatient DEVON VILLAGOMEZ [facility] [id number] [facility] 2021-01-03 12:25:49 2021-01-03 12:47:50 Vibrating Screed Operator Visit Ultrasound, Devon Maguire [facility] SOFTWARE SALES CONSULTANT [facility] 1.114 350.1.13.10 4.2.7.2.686 [id number] [facility] 2020-12-30 11:00:00 2020-12-30 12:13:15 Outpatient R DUKANDIN [facility] [id number] [facility] 2020-12-30 10:58:11 2020-12-30 12:13:15 Routine Visit [facility] 1..114 350.1.13.10 4.2.7.2.686 [id number] 134 [id number] [facility] 2020-12-30 11:00:00 2020-12-30 11:00:00 Outpatient R DUKANDIN [facility] [id number] [facility] 2020-12-12 09:45:00 2020-12-12 11:06:33 Outpatient P ERIN CUBA SHANNON [facility] [id number] [facility] 2020-12-12 09:46:18 2020-12-12 11:01:18 Vibrating Screed Operator Visit Ultrasound, Erin Kraus [facility] SOFTWARE SALES CONSULTANT [facility] 1..840.114 350.1.13.10 4.2.7.2.686 [id number] [facility] 2020-12-12 09:45:00 2020-12-12 09:45:00 Outpatient P [facility] [id number] [facility] 2020-12-06 00:00:00 2020-12-06 00:00:[address] [facility] 1.2.840.114 350.1.13.10 4.2.7.2.686 [id number] 134 [id number] [facility] 2020-12-02 08:02:24 2020-12-02 08:30:53 Routine Visit Du Jackson [facility] 1.2.840.114 350.1.13.10 4.2.7.2.686 [id number] 134 [id number] [facility] 2020-12-02 08:00:00 2020-12-02 08:00:00 Outpatient R JACKSON SANDY [facility] [id number] [facility] 2020-11-26 13:30:00 2020-11-26 13:30:00 Outpatient R JACKSON SANDY [facility] [id number] [facility] 2020-11-22 00:00:00 2020-11-22 00:00:00 Patient Secure Msg Jackson Sandy [facility] 1.20.114 350.1.13.10 4.2.7.2.686 [id number] 134 [id number] [facility] 2020-11-21 11:15:00 2020-11-21 11:15:00 Outpatient R JACKSON SANDY [facility] [id number] [facility] 2020-11-21 10:49:53 2020-11-21 11:04:53 Vibrating Screed Operator Visit Pob, Adc Lab Main Du Jackson [facility] 1.0.114 350.1.13.10 4.2.7.2.686 [id number] [facility] 2020-11-21 00:00:00 2020-11-21 00:00:00 Orders Only Doctor Unassigned, [place] [facility] 1.2840.114 350.1.13.10 4.2.7.2.686 [id number] [facility] 2020-11-01 09:19:08 2020-11-01 13:54:05 Routine Visit Jackson Sandy [facility] 1.840.114 350.1.13.10 4.2.7.2.686 [id number] 134 [id number] [facility] 2020-11-01 09:15:00 2020-11-01 09:15:00 Outpatient R JACKSON SANDY [facility] [id number] [facility] 2020-11-01 00:00:00 2020-11-01 00:00:00 Telephone Jackson Sandy [facility] 1.20.114 350.1.13.10 4.2.7.2.686 [id number] 134 [id number] [facility] 2020-11-01 00:00:00 2020-11-01 00:00:00 Telephone Jackson Sandy [facility] 1..840.114 350.1.13.10 4.2.7.2.686 [id number] 134 [id number] [facility] 2020-10-31 05:59:00 2020-10-31 08:21:00 Emergency EL Balta Diaz [facility] [id number] [facility] 2020-10-29 13:05:32 2020-10-29 13:48:28 Routine Visit Jackson Sandy [facility] 1.0.114 350.1.13.10 4.2.7.2.686 [id number] 134 [id number] [facility] 2020-10-29 13:15:00 2020-10-29 13:15:00 Outpatient R JACKSON SANDY [facility] [id number] [facility] 2020-10-21 00:00:00 2020-10-21 00:00:[address] [facility] 1.84.114 350.1.13.10 4.2.7.2.686 [id number] 134 [id number] [facility] 2020-10-01 15:48:21 2020-10-01 16:32:16 Routine Visit Jackson Sandy [facility] 1.20.114 350.1.13.10 4.2.7.2.686 [id number] 134 [id number] [facility] 2020-10-01 16:00:00 2020-10-01 16:00:00 Outpatient R JACKSON SANDY [facility] [id number] [facility] 2020-09-26 00:00:00 2020-09-26 00:00:[address] [facility] 1.2.114 350.1.13.10 4.2.7.2.686 [id number] 134 [id number] [facility] 2020-09-03 16:00:00 2020-09-03 16:00:00 Outpatient JACKSON PRITCHARD [facility] [id number] [facility] 2020-08-27 14:45:00 2020-08-27 14:45:00 Outpatient JACKSON PRITCHARD [facility] [id number] [facility] 2020-08-24 11:17:00 2020-08-24 12:18:00 Emergency Chris [facility] 1.2.840.114 350.1.13.10 4.2.7.2.686 [id number] 2020-08-24 11:08:00 2020-08-24 11:08:00 Emergency X CHRIS GARCIA [facility] ERT [id number] [facility] 2020-08-20 09:30:00 2020-08-20 09:30:00 Outpatient JACKSON PRITCHARD [facility] [id number] [facility] 2017-05-04 08:30:00 2017-05-04 08:30:00 Appointmen t; IFRAH TORRES M.D. LOWE, WALTER, M.D. [facility] Orthopedics at [facility] [id number] [facility] 2017-03-29 09:30:00 2017-03-29 09:30:00 Appointmen t; JUWAN BAHENA P.A. PACINI, KRISTIN, P.A. [facility] Orthopedics at [facility] [id number] [facility] 2017-02-02 11:30:00 2017-02-02 11:30:00 Appointmen t; JAZMYN IBARRA NP STANCELL, NATALIE, NP [facility] [id number] [facility] 2017-01-18 09:45:00 2017-01-18 09:45:00 Appointmen t; JUWAN BAHENA P.A. PACINI, KRISTIN, P.AAnuel [facility] [id number] [facility] 2017-01-12 09:00:00 2017-01-12 09:00:00 Appointmen t; ATHLETIC, SHOPPER ATHLETIC, SHOPPER [facility] [id number] [facility] 2017-01-07 08:45:00 2017-01-07 08:45:00 Appointmen t; IFRAH TORRES M.D. LOWE, WALTER, M.D. [facility] [id number] [facility] 2016-12-29 16:30:00 2016-12-29 16:30:00 Appointmen t; IFRAH TORRES M.D. LOWE, WALTER, M.D. [facility] [id number] [facility] 2016-12-10 09:30:00 2016-12-10 09:30:00 Appointmen t; MANISHA CHOW P.A. SLOAN, DIONE, P.A. [facility] [id number] [facility] Results Test Description Test Time Test Comments Results Result Co mments Source [facility] with [id number] 09:32:16* Test Item Value Reference Range Interpretation Comme nts WBC (test code = 6690-2) See_Comment H [Automated messa ge] The system which generated this result transmitted reference range: 4.30 - 11.10 10*3/?L. The reference range was not used to interpret this result as normal/abnormal. RBC (test code = 789-8) See_Comment L [Automated messa ge] The system which generated this result transmitted reference range: 3.93 - 5.25 10*6/?L. The reference range was not used to interpret this result as normal/abnormal. HGB (test code = 718-7) 8.7 g/dL 11.6-15.0 L HCT (test code = 4544-3) 27.5 % 35.7-45.2 L MCV (test code = 787-2) 87.9 fL 80.6-95.5 MCH (test code = 785-6) 27.8 pg 25.9-32.8 MCHC (test code = 786-4) 31.6 g/dL 31.6-35.1 RDW-SD (test code = 63717-9) 44.0 fL 39.0-49.9 RDW-CV (test code = 788-0) 13.7 % 12.0-15.5 PLT (test code = 777-3) See_Comment [Automated messa ge] The system which generated this result transmitted reference range: 166 - 358 10*3/?L. The reference range was not used to interpret this result as normal/abnormal. MPV (test code = 83086-7) 11.3 fL 9.5-12.9 NRBC/100 WBC (test code = 4719351357) See_Comment [Automated [employer] ssage] The system which generated this result transmitted reference range: 0.0 - 10.0 /100 WBCs. The reference range was not used to interpret this result as normal/abnormal. NRBC x10^3 (test code = 9912260544) <0.01 See_Comment [Automated [employer] ge] The system which generated this result transmitted reference range: 10*3/?L. The reference range was not used to interpret this result as normal/abnormal. GRAN MAT (NEUT) % (test code = 770-8) 76.8 % IMM GRAN % (test code = 3453866080) 0.70 % LYMPH % (test code = 736-9) 14.1 % MONO % (test code = 5905-5) 7.2 % EOS % (test code = 713-8) 1.0 % BASO % (test code = 706-2) 0.2 % GRAN MAT x10^3(ANC) (test code = 0344753386) 8.98 10*3/uL 1.88-7.09 H IMM GRAN x10^3 (test code = 9732089125) 0.08 10*3/uL 0.00-0.06 H LYMPH x10^3 (test code = 731-0) 1.65 10*3/uL 1.32-3.29 MONO x10^3 (test code = 742-7) 0.84 10*3/uL 0.33-0.92 EOS x10^3 (test code = 711-2) 0.12 10*3/uL 0.03-0.39 BASO x10^3 (test code = 704-7) <0.03 0.01-0.07 Lab Interpretation (test code = 99892-6) Abnormal [facility] OR NICK ONLY - [id number] 06:03:29* Test Item Value Reference Range Interpretation Comme nts RPR (Qualitative) (test code = 74520-5) Nonreactive Nonreactive Lab Interpretation (test cod e = 77196-5) Normal [facility] OR NICK ONLY - [id number] 06:03:29* Test Item Value Reference Range Interpretation Comme nts RPR (Qualitative) (test code = 49806-2) Nonreactive Nonreactive Lab Interpretation (test cod e = 56974-4) Normal [facility] (D) IMMUNE [id number] 18:11:51* Test Item Value Reference Range Interpretation Comme nts RHIG CANDIDATE? (test code = 5055) No- see comment Patient is not a candidate for RhIg- Patient is Rh Positive.Performed at [facility] Laboratory [facility] Blood [address] [place] [address] Free: [phone] No. [id number] [facility] (D) IMMUNE [id number] 18:11:51* Test Item Value Reference Range Interpretation Comme nts RHIG CANDIDATE? (test code = 5055) No- see comment Patient is not a candidate for RhIg- Patient is Rh Positive.Performed at [facility] Laboratory [facility] Blood [address] [place], [place] [address]Toll Free: [phone] No. [id number] [facility] B Surface [id number] 17:09:08 * Test Item Value Reference Range Interpretation Comme nts HBsAg Semi-Quantitative (sukhi t code = 5195-3) Negative Negative [facility] B Surface Yszivsz9745-70-34 17:09:08 * Test Item Value Reference Range Interpretation Comme nts HBsAg Semi-Quantitative (sukhi t code = 5195-3) Negative [facility] [id number] 13:55:48* Test Item Value Reference Range Interpretation Comme nts HIV Semi-quantitative (test code = 03212-7) Negative Negative REGULO (test code = REGULO) Non-reactive for HIV-1 antigen and HIV-1/HIV-2 antibodies. ?No laboratory evidence of HIV infection. ?Repeat in 2-4 weeks if acute HIV infection is suspected. [facility] WITH [id number] 13:55:48* Test Item Value Reference Range Interpretation Comme nts HIV Semi-quantitative (test code = 99564-0) Negative Negative REGULO (test code = REGULO) Non-reactive for HIV-1 antigen and HIV-1/HIV-2 antibodies. ?No laboratory evidence of HIV infection. ?Repeat in 2-4 weeks if acute HIV infection is suspected. [facility] Screen - ONCE [id number] 13:17:17 * Test Item Value Reference Range Interpretation Comme nts ABO & RH (test code = 20) O Positive Performed at [facility] Blood [address] Free: [phone] No. [id number] IAT (test code = 1185) Negative Performed at [facility] Blood [place] [address]Toll Free: [phone] No. [id number] [facility] - ONCE [id number] 13:17:17 * Test Item Value Reference Range Interpretation Comme nts ABO & RH (test code = 20) O Positive Performed at [facility] Blood [place] [address]Toll Free: [phone] No. [id number] IAT (test code = 1185) Negative Performed at [facility] Blood [place] [address]Toll Free: [phone] No. [id number] [facility] W/O SPECIFIC [id number] 17:13:00* Test Item Value Reference Range Interpretation Comme nts POCT PH U (test code = 3254) n/a 5-8 POCT U LEUK EST (test code = 3263) n/a Negative - Negative POCT U NIT (test code = 3262) n/a Negative - Negati ve POCT U PROT (test code = 3259) trace Negative - Negat caren POCT U GLU (test code = 3256) negative Negative - Negati ve POCT U KETONE (test code = 3258) n/a Negative - Neg ative POCT U BLD (test code = 3257) n/a Negative - Negati ve [facility] URINALYSIS W/O SPECIFIC [id number] 21:01:00* Test Item Value Reference Range Interpretation Comme nts POCT PH U (test code = 3254) n/a 5-8 POCT U LEUK EST (test code = 3263) n/a Negative - Negative POCT U NIT (test code = 3262) n/a Negative - Negati ve POCT U PROT (test code = 3259) Negative Negative - Negat caren POCT U GLU (test code = 3256) Negative Negative - Negati ve POCT U KETONE (test code = 3258) n/a Negative - Neg ative POCT U BLD (test code = 3257) n/a Negative - Negati ve Lab Interpretation (test cod e = [id number]) [facility] URINALYSIS W/O SPECIFIC [id number] 21:52:00* Test Item Value Reference Range Interpretation Comme nts POCT PH U (test code = 3254) n/a 5-8 POCT U LEUK EST (test code = 3263) n/a Negative - Negative POCT U NIT (test code = 3262) n/a Negative - Negati ve POCT U PROT (test code = 3259) Negative Negative - Negat caren POCT U GLU (test code = 3256) Negative Negative - Negati ve POCT U KETONE (test code = 3258) n/a Negative - Neg ative POCT U BLD (test code = 3257) n/a Negative - Negati ve Lab Interpretation (test cod e = [id number]) [facility] URINALYSIS W/O SPECIFIC [id number] 16:39:00* Test Item Value Reference Range Interpretation Comme nts POCT PH U (test code = 3254) n/a 5-8 POCT U LEUK EST (test code = 3263) n/a Negative - Negative POCT U NIT (test code = 3262) n/a Negative - Negati ve POCT U PROT (test code = 3259) Negative Negative - Negat caren POCT U GLU (test code = 3256) Negative Negative - Negati ve POCT U KETONE (test code = 3258) n/a Negative - Neg ative POCT U BLD (test code = 3257) n/a Negative - Negati ve Lab Interpretation (test cod e = 07473-9) Normal [facility] URINALYSIS W/O SPECIFIC [id number] 16:31:00* Test Item Value Reference Range Interpretation Comme nts POCT PH U (test code = 3254) n/a 5-8 POCT U LEUK EST (test code = 3263) n/a Negative - N egative POCT U NIT (test code = 3262) n/a Negative - Negati ve POCT U PROT (test code = 3259) neg Negative - Negat caren POCT U GLU (test code = 3256) neg Negative - Negati ve POCT U KETONE (test code = 3258) n/a Negative - Neg ative POCT U BLD (test code = 3257) n/a Negative - Negati ve [facility] URINALYSIS W/O SPECIFIC [id number] 23:03:00* Test Item Value Reference Range Interpretation Comme nts POCT PH U (test code = 3254) n/a 5-8 POCT U LEUK EST (test code = 3263) n/a Negative - Negative POCT U NIT (test code = 3262) n/a Negative - Negati ve POCT U PROT (test code = 3259) Negative Negative - Negat caren POCT U GLU (test code = 3256) Negative Negative - Negati ve POCT U KETONE (test code = 3258) n/a Negative - Neg ative POCT U BLD (test code = 3257) n/a Negative - Negati ve Lab Interpretation (test cod e = 20275-4) [facility] WITH [id number] 20:28:50* Test Item Value Reference Range Interpretation Comme nts HIV Semi-quantitative (test code = 70011-9) Negative Negative REGULO (test code = REGULO) Non-reactive for HIV-1 antigen and HIV-1/HIV-2 antibodies. ?No laboratory evidence of HIV infection. ?Repeat in 2-4 weeks if acute HIV infection is suspected. [facility] [id number] 19:47:19* Test Item Value Reference Range Interpretation Comme nts GLUC 1 HR (test code = 9810406525) 111 mg/dL 120-170 L Lab Interpretation (test cod e = 41212-2) Abnormal [facility] [id number] 17:17:17* Test Item Value Reference Range Interpretation Comme [facility] WBC (test code = 6690-2) See_Comment [Automated messa ge] The system which generated this result transmitted reference range: 4.30 - 11.10 10*3/?L. The reference range was not used to interpret this result as normal/abnormal. RBC (test code = 789-8) See_Comment L [Automated messa ge] The system which generated this result transmitted reference range: 3.93 - 5.25 10*6/?L. The reference range was not used to interpret this result as normal/abnormal. HGB (test code = 718-7) 11.1 g/dL 11.6-15.0 L HCT (test code = 4544-3) 34.4 % 35.7-45.2 L MCV (test code = 787-2) 91.2 fL 80.6-95.5 MCH (test code = 785-6) 29.4 pg 25.9-32.8 MCHC (test code = 786-4) 32.3 g/dL 31.6-35.1 RDW-SD (test code = 58510-4) 41.9 fL 39.0-49.9 RDW-CV (test code = 788-0) 12.9 % 12.0-15.5 PLT (test code = 777-3) See_Comment [Automated messa ge] The system which generated this result transmitted reference range: 166 - 358 10*3/?L. The reference range was not used to interpret this result as normal/abnormal. MPV (test code = 06135-2) 10.3 fL 9.5-12.9 NRBC/100 WBC (test code = 2541655752) See_Comment [Automated me ssage] The system which generated this result transmitted reference range: 0.0 - 10.0 /100 WBCs. The reference range was not used to interpret this result as normal/abnormal. NRBC x10^3 (test code = 0705909256) <0.01 See_Comment [Automated messa ge] The system which generated this result transmitted reference range: 10*3/?L. The reference range was not used to interpret this result as normal/abnormal. GRAN MAT (NEUT) % (test code = 770-8) 80.8 % IMM GRAN % (test code = 7590493811) 0.50 % LYMPH % (test code = 736-9) 12.9 % MONO % (test code = 5905-5) 4.8 % EOS % (test code = 713-8) 0.8 % BASO % (test code = 706-2) 0.2 % GRAN MAT x10^3(ANC) (test code = 6942454018) 8.10 10*3/uL 1.88-7.09 H IMM GRAN x10^3 (test code = 8463946249) 0.05 10*3/uL 0.00-0.06 LYMPH x10^3 (test code = 731-0) 1.29 10*3/uL 1.32-3.29 L MONO x10^3 (test code = 742-7) 0.48 10*3/uL 0.33-0.92 EOS x10^3 (test code = 711-2) 0.08 10*3/uL 0.03-0.39 BASO x10^3 (test code = 704-7) <0.03 0.01-0.07 Lab Interpretation (test code = 44138-7) Abnormal [facility] URINALYSIS W/O SPECIFIC [id number] 17:48:00* Test Item Value Reference Range Interpretation Comme nts POCT PH U (test code = 3254) n/a 5-8 POCT U LEUK EST (test code = 3263) n/a Negative - Negative POCT U NIT (test code = 3262) n/a Negative - Negati ve POCT U PROT (test code = 3259) negative Negative - Negat caren POCT U GLU (test code = 3256) negative Negative - Negati ve POCT U KETONE (test code = 3258) n/a Negative - Neg ative POCT U BLD (test code = 3257) n/a Negative - Negati ve [facility] SPECIFIC [id number] 13:19:00* Test Item Value Reference Range Interpretation Comme nts POCT PH U (test code = 3254) N/A 5-8 POCT U LEUK EST (test code = 3263) N/A Negative - Negative POCT U NIT (test code = 3262) N/A Negative - Negati ve POCT U PROT (test code = 3259) positive Negative - Negat caren POCT U GLU (test code = 3256) negative Negative - Negati ve POCT U KETONE (test code = 3258) N/A Negative - Neg ative POCT U BLD (test code = 3257) N/A Negative - Negati ve [facility] HospitalHCG [id number] 07:00:00* Test Item Value Reference Range Interpretation Comme nts HCG SERUM (test code = HCG) 83401 INTERPRETATION:V ALUES BETWEEN 15-20 milliInternational units/mL NEED TO BERETESTED WITHIN 48 HOURS. All units for these ranges are in milliInternationalunits/mL0-1 WK AFTER CONCEPTION 0-50 1-2 WKS AFTER CONCEPTION 40-3002-3 WKS AFTER CONCEPTION 100-1,0003-4 WKS AFTER CONCEPTION 500-6,0001-2 MONTHS AFTER CONCEPTION 5,000-200,0002-3 MONTHS AFTER CONCEPTION 10,000-100,0002ND TRIMESTER 3,000-50,0003RD TRIMESTER 1,000-50,000 SPECIMENS WITH AN HCG LEVEL FROM 0-6 milliInternationalunits/mL SHOULD BE CONSIDERED NEGATIVE COMPREHENSIVE METABOLIC [id number] 06:42:00* Test Item Value Reference Range Interpretation Comme nts SODIUM (test code = NA) 137 mEq/L 135-145 N POTASSIUM (test code = K) 3.3 mEq/L 3.5-5.0 L CHLORIDE (test code = CL) 102 mEq/L 100-115 N CARBON DIOXIDE (test code = CO2) 25 mEq/L 22-31 N ANION GAP (test code = GAP) 13.40 10-20 N GLUCOSE (test code = GLU) 137 mg/dL 65-110 H BLOOD UREA NITROGEN (test co de = BUN) 13 mg/dL 7-18 N GLOMERULAR FILTRATION RATE ( test code = GFR) 91 ml/min >60 N CREATININE (test code = CREAT) 0.8 mg/dL [...] 14 units/L 12-78 N ALKALINE PHOSPHATASE TOTAL ( test code = ALKP) 69 units/L 46-116 N UA RFLX MICR CULT IF [id number] 06:40:00* Test Item Value Reference Range Interpretation Comme nts UA COLOR (test code = COLU) YELLOW YELLOW UA APPEARANCE (test code = APPU) CLEAR CLEAR UA GLUCOSE DIPSTICK (test code = DGLUU) NEGATIVE NEGATIVE UA BILIRUBIN DIPSTICK (test code = BILU) 1+ NEGATIVE A RESULTS MAY B E FALSELY ELEVATED. TEST RESULTS SHOULD BE INTERPRETED WITH CAREAS NO CONFIRMATORY TEST IS AVAILABLE. UA KETONE DIPSTICK (test code = KETU) NEGATIVE NEGATIVE UA SPECIFIC GRAVITY (test code = SGU) >1.030 1.001-1.035 N UA BLOOD DIPSTICK (test code = YECENIA) 2+ NEGATIVE A UA PH DIPSTICK (test code = WEST) 6.0 5-9 UA PROTEIN DIPSTICK (test code = PROU) TRACE NEGATIVE A UA UROBILINIOGEN DIPSTICK (test code = URO) 0.2 mg/dL NEG UA NITRITE DIPSTICK (test code = JOSE L) NEGATIVE NEGATIVE UA LEUKOCYTE ESTERASE DIPSTICK (test code = LEUU) NEGATIVE NEG UA RBC (test code = RBCU) 5-10 #/hpf NONE SEEN A UA EPITHELIAL CELLS (test code = EPIU) RARE #/HPF RARE-FEW Indication for culture: Suprapubic PainSpecimen Description: CLEAN CATCHCBC W/AUTO [id number] 06:23:00* Test Item Value Reference Range Interpretation Comme nts WHITE BLOOD CELL (test code = WBC) [...] pg 27.3-33.9 N MEAN CELL HGB CONCETRATION ( test code = MCHC) 34.1 gm/dL 32.0-34.2 N RED CELL DISTRIBUTION WIDTH (test code = RDW) 12.7 % 12.2-16.3 N PLATELET COUNT (test code = PLT) 242 K/mm3 134-363 N MEAN PLATELET VOLUME (test c ode = MPV) 11.1 fL 9.2-12.7 N NEUTROPHIL % (test code = NT%) 83.0 [...] = BA#) 0.0 K/mm3 RBC MORPHOLOGY REQUIRED (sukhi t code = RBCM) NORMAL NORMAL PLATELET MORPHOLOGY REQUIRED (test code = PLTMR) NORMAL NORMAL - US [id number] 00:00:00 [facility] 2000 Sex: F Patient Name: BRAYDON MARTI Unit No: [id number] EXAMS: CPT CODE: [id number] US LTD 86737 PROCEDURE INFORMATION: Exam: US , Limited Exam date and time: 10/31/2020 6:51 AM Age: 20years old Clinical indication: complicated by abdominal or [...] prior studies available. FINDINGS: Gestation: Intrauterine gestation. position:A single thin viable intrauterine gestation is demonstrated [...] measuring 2 cm x 2.1 cm x 1.7 cm. The left ovary measures 2.7 cm x 1.6 cm x 2.4 cm. Survey of the IMPRESSION: Armenta viable intrauterine gestation. No evidence of placental abruption or previa. at 0743 Reported and signed by: Benjie Lowery MD [facility] NAME: BRAYDON MARTI Radiology Department PHYS: Balta Sheldon : 2000 AGE: 20 SEX: F [place], [place] [address] : JenERS PHONE #: [phone] EXAM DATE: 10/31/2020 STATUS: REG ER FAX #: [phone] RAD NO: Page 1 Signed Report (CONTINUED) Patient Name: BRAYDON MARTI Unit No: [id number] EXAMS: CPT CODE: [id number] US LTD 34702 (Continued) CC: Balta Lopez MD Technologist: Ольга Meyer RDMS Probe: Trnscrbd D/ (0743) GCD.CPS Orig Print D/T: S: 10/31/2020 (0743) [facility] NAME: BRAYDON MARTI Radiology Department PHYS: Balta Sheldon : 2000 AGE: 20 SEX: Kristy [place], [place] [address] LOC: JenERS PHONE #: [phone] EXAM DATE: 10/31/2020 STATUS: REG ER FAX #: [phone] RAD NO: Page2 Signed Report Patient Name: BRAYDON MARTI Unit No: [id number] EXAMS: CPT CODE: [id number] US LTD 80290 (Continued) [facility] NAME: BRAYDON MARTI Radiology Department PHYS: Balta Sheldon : 2000 AGE: 20 SEX: Kristy Tapia [id number] LOC: JenERS PHONE #: [phone] EXAM DATE: 10/31/2020 STATUS: REG ER FAX #: [phone] RAD NO: Page 3 Signed Report Notes Date/Time Note Provider Source 2020-10-31 06:58:00 [id number]:5 8:00 [facility])EMERGENCY PROVIDER REPORTREPORT#:[id number] REPORT STATUS: SignedDATE:10/31/20 TIME: 0658 PATIENT: BRAYDON MARTI UNIT #: [id number]#: [id number] ROOM/BED:AGE: 20 SEX: F PCP PHYS: No Primary or Family PhysicianSERVICE AUTHOR: Balta Diaz MD * ALL edits or amendments must be made on the electronic/computer document * HPI- Female GeneralInitial Greet Date/Time 10/31/20 0601 PresentationChief Complaint Pelvic pain)( Sudden in Onset? NoExacerbated by NothingRelieved by Nothing Free Text HPI NotesFree Text HPI NotesPatient is a 20-year-old female who reports she is 16 weeks , she comes in complaining of left lower quadrant pain since 3 AM this morning, she reports of also nausea and vomiting x3. She denies hematuria, dysuria, vaginal discharge or vaginal bleeding. There is no history of fever diarrhea, however she reports constipation. Risk- Female Risk StratificationEctopic Risk factors reviewed Review of Systems Basic Review of SystemsBasic ROS EYES: No redness, RESP: No SOB, CV: No chest pain, HEM: No bleeding/bruising, PSYCH: NL thought content Focused Review of SystemsConstitutionalDenies: Lethargy, Malaise. Ears/Nose/ThroatDenies: Earache L. GIReports: Abdominal pain, Nausea, Vomiting. Denies: Mucousy stool. FemaleReports: Pelvic pain, . Denies: Urinary urgency. MusculoskeletalDenies: Neck pain. EndocrineDenies: Weight loss. SkinDenies: Jaundice. NeurologicDenies: Focal weakness, Generalized weakness, Headache, Lightheaded. Past Medical History - AdultStated Complaint LOWER ABD/BACK PAIN,16 WKSAllergiesCoded Allergies:No Known Allergies (10/31/20) Review of Nursing Notes Rev avail, and agreeSmoking status: Smoking status for patients 13 years old or older: Never Smoker Physical Exam Vital SignsVital SignsFirst Documented: Result Date Time Pulse Ox 99 [...] Review of Vital Signs Reviewed Basic Physical ExamBasic PE GEN: Well appearing/NAD, HEAD: Atraumatic/NC, EYES: PERRL, conj clear, ENT: Membranes moist, NECK: Supple, RESP: No resp distress, CV: Reg rate rhythm, EXT: No gross abnormality, SKIN: No rashes, warm/dry, NEURO: alert oriented, NEURO: gross movement NL, PSYCH: NL thought content Focused PEAbdomen/GI Abdomen/GI Soft Tenderness/Guarding/Rebound Tender LLQ. Genitourinary General Exam deferred Interpretation Diagnostics Lab Results InterpretationResultsLaboratory Tests 10/31/20 06:[Embedded Image Not Available]Laboratory Tests: 10/31 0545 Chemistry Sodium (135 - 145 mEq/L) [...] (Auto) (14.5 - 29.7 %) 10.5 L [place] % (Auto) (3.6 - 10.2 %) 4.8 Eos % (Auto) (0.0 - 3.0 %) 0.7 Baso % (Auto) (0.1 - 0.9 %) 0.3 Neut # (Auto) (K/mm3) 11.7 Lymph # (Auto) (K/mm3) 1.5 [place] # (Auto) (K/mm3) 0.7 Eos # (Auto) (K/mm3) 0.10 Baso # (Auto) (K/mm3) 0.0 Miscellaneous Maternal Serum HCG 10337 Urines Urine Color (YELLOW) YELLOW Urine Appearance (CLEAR) CLEAR Urine pH (5 - 9) 6.0 Ur Specific [place] (1.001 - 1.035) >1.030 Urine Protein (NEGATIVE) TRACE H Urine Glucose (UA) (NEGATIVE) NEGATIVE Urine Ketones (NEGATIVE) NEGATIVE Urine Blood (NEGATIVE) 2+ H Urine Nitrite (NEGATIVE) NEGATIVE Urine Bilirubin (NEGATIVE) 1+ H Urine Urobilinogen (NEG mg/dL) 0.2 Ur Leukocyte Esterase (NEG) NEGATIVE Urine RBC (NONE SEEN #/hpf) 5-10 H Ur Epithelial Cells (RARE - FEW #/HPF) RARE Recent Impressions:ULTRASOUND - US LTD 10/31 07 Report Impression - Status: SIGNED Entered: 10/31/2020 3917 IMPRESSION: Armenta viable intrauterine gestation. No evidence of placental abruption or previa.Impression By: [email or web address] - Benjie Lowery MD Lab Imaging StatementLaboratory radiographic studies reviewed and considered in the medical decision-making. Re-Evaluation MDM ED CourseMedication(s) OrderedMedication(s) Ordered:Central Nervous System Agents Sig/Jluis Start time Last Medication Dose Route Stop Time Status Admin Morphine Sulfate 4 MG X1ED STA 10/31 621 DC 10/31 IV 10/31 622 0641 Hydrocodone Bitart/ 1 TAB X1ED STA 10/31 618 CAN Acetaminophen PO 11/01 619 Electrolytic, Caloric, And Zachariah Sig/Jluis Start time Last Medication Dose Route Stop Time Status Admin Sodium Chloride 1,000 ML X1ED STA 10/31 621 DC 10/31 IV 10/31 622 0641 Gastrointestinal Drugs Sig/Jluis Start time Last Medication Dose Route Stop Time Status Admin Ondansetron HCl 4 MG ONCE ONE 10/31 629 DC 10/31 IV 10/31 630 0641 Ondansetron HCl 4 MG X1ED STA 10/31 618 CAN PO 11/01 619 Patient Discharge Departure Vital Signs/ConditionVital SignsFirst Documented: Result Date Time Pulse Ox 99 10/31 0605 B/P 122/77 10/31 06 B/P Mean 92 10/31 604 Temp 37.1 10/31 604 Pulse 72 10/31 06 Resp 16 10/31 604 Last Documented: Result Date Time Pulse Ox 100 10/31 826 B/P 124/68 10/31 826 B/P Mean 86 10/31 826 Temp 36.8 10/31 826 Pulse 71 10/31 826 Resp 16 10/31 826 All vital signs available at the time of this entry have been reviewed. Condition Stable Clinical ImpressionClinical ImpressionPrimary Impression: Abdominal pain of left lower quadrant during , antepartumSecondary Impressions: Constipation, Nausea vomiting Disposition DecisionDischarge )( Discharged to Home Yes )( Time 08 )( Date 10/31/20 Discharge/Care PlanCounseled Regarding Diagnosis, Lab results, Prescriptions, Need for follow-up, When to return to ED(Auto) PrescriptionsCurrent Visit ScriptsLACTULOSE (KRISTALOSE) 10 GM PO DAILY LACTULOSE (KRISTALOSE) 10 GM PO DAILY #10 PACKET ACETAMINOPHEN (TYLENOL) 500 MG PO Q6H PRN PRN pain ACETAMINOPHEN (TYLENOL) 500 MG PO Q6H PRN PRN pain #10 TABS Follow label instructions for pain or fever. Patient Instructions Abdominal Pain, ED Constipation (Adult)ReferralsJohnie Barba MD Departure FormsWORK/SCHOOL EXCUSE-CAREGIVER 2 Discharge NoteI have spoken with the patient and/or caregivers. I have explained the patient'scondition, diagnoses and treatment plan based on the information available to meat this time. I have answered the patient's and/or caregiver's questions and addressed any concerns. The patient and/or caregivers have as good an understanding of the patient's diagnosis, condition and treatment plan as can beexpected at this point. The vital signs have been stable. The patient's condition is stable and appropriate for discharge from the emergency department. The patient will pursue further outpatient evaluation with the primary care physician or other designated or consulting physician as outlined in the discharge instructions. The patient and/or caregivers are agreeable to this planof care and follow-up instructions have been explained in detail. The patient and/or caregivers have received these instructions in written format and have expressed an understanding of the discharge instructions. The patient and/or caregivers are aware that any significant change in condition or worsening of symptoms should prompt an immediate return to this or the closest emergency department or a call to 911. at 0851RPT #:[id number] OF REPORTDallas [facility] department [id number]:58:00F.[id number] ilable for patient [id number]:51:54 [facility]
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
[2023-06-28 19:57] VITALS: BP 132/81; TEMP 98.2; O2SAT 99
== END 2023-06-28 19:11 | disposition home or self-care (01) ==
LOC: ER 18:04
DX: S50.12XA Contusion of left forearm, initial encounter (principal)
CPT/HCPCS: 99284